=== PATIENT | female | born 1955 | race Caucasian/White ===

== ENCOUNTER 2019-08-08 09:24 | Day surgery (SDC) | payer MEDICARE, OTHER ==
[~2019-08-08] VITALS: Ht 160 cm; Wt 94.3 kg
[~2019-08-08 09:24] MED LIST: ALDA25TA2 OR; ALLOPURINAL PO; AMLO5TAB6 PO; ATOR1TAB19 PO; CIPR250T3 PO; CLON0.5T8 PO; CLONAZAPAM PO; COLA100C2 OR; COZA100T OR; FENT1DIS14 TD; FERR325T OR; FOLI1TAB11 PO; FOLITAB11 PO; GABAPOW41 PO; HYDR200T3 PO; HYOS1TAB SL; INSUH10VL SC; INSULANT SC; INSULIN 70/30 SQ; LASI20TA3 PO; LIDOCAINE 1% MDV 20ML VIAL SQ PRN; LOPE1CAP5 PO; LOPE2TAB3 PO; LOPRESSOR PO; MAGN400T PO; MAXA5TAB OR; METF-791 PO; METF10004 PO; MICA80TA PO; MILKSUS OR; MORP10SO OR; NADO20TA PO; NADO40TA PO; NEUR300C PO; NEXI1CAP4 PO; NEXIUM PO; NOVOLIN INJ; NS 1,000 ML IV ONE; ONGLYZA INJ; OXYC-517 PO; OXYCODONE PO; PERC5TAB12 PO; PRED5TA PO; REST0.05 OU; SUCR1SS PO; TOUJ300I2 SC; VITA100T51 PO; ZOCOR PO; ZYLO300T6 PO; [UNRECOGNIZED DRUG - OTHER] PO
[2019-08-08] MEDS ORDERED: PROPOFOL 200 MG/20 ML VIAL As Ordered ONE (10:15)
[2019-08-08] MEDS ORDERED: LIDOCAINE 2% INJ 100 MG/5 ML SDV (FOR ANES.) As Ordered ONE (10:15)
[2019-08-08] MEDS ORDERED: ROCURONIUM BROMIDE 50 MG/5 ML VIAL As Ordered ONE (10:15)
[2019-08-08] MEDS ORDERED: dexameTHASONE 4 MG/ML 1ML VIAL (J1100) As Ordered ONE (10:18)
[2019-08-08] MEDS ORDERED: ONDANSETRON 4MG/2ML VIAL (J2405) As Ordered ONE (10:18)
[2019-08-08 10:41] LABS: CALCIUM LEVEL 9.1 MG/DL (8.8-10.2); CREATININE FOR GFR 4.27 MG/DL (0.55-1.30); GLOMERULAR FILTRATION RATE 11.1 (>45); POTASSIUM SERUM 4.3 MEQ/L (3.5-5.1)
[2019-08-08] MEDS ORDERED: BUPIVACAINE HCL 0.5% 10 ML VIAL As Ordered ONE (10:58)
[2019-08-08] MEDS ORDERED: LIDOCAINE 2% MDV 20 ML VIAL As Ordered ONE (10:58)
[2019-08-08] MEDS ORDERED: MIDAZOLAM INJ 2 MG/2 ML VIAL (J2250) As Ordered ONE (11:06)
[2019-08-08] MEDS ORDERED: HYDROmorphone HCL 2 MG/ML 1ML VIAL (J1170) As Ordered ONE (11:07)
[2019-08-08] MEDS ORDERED: ePHEDrine SULFATE 25 MG/5 ML(5MG/ML) SYRINGE As Ordered ONE (11:50)
[2019-08-08] MEDS ORDERED: GLYCOPYRROLATE INJ 0.2 MG/ML 2 ML VIAL As Ordered ONE (11:52)
[2019-08-08] MEDS ORDERED: SUGAMMADEX SODIUM 500 MG/5 ML VIAL (BRIDION) As Ordered ONE (11:54)
[2019-08-08] MEDS ORDERED: HYDROMORPHONE HCL 0.5 MG/ 0.5 ML SYRINGE (J1170 PER 1) As Ordered ONE (12:41)
[2019-08-08] MEDS ORDERED: LR 1,000 ML IV SCH (13:00)
[2019-08-08] MEDS ORDERED: HYDROMORPHONE HCL 0.5 MG/ 0.5 ML SYRINGE (J1170 PER 1) IV PRN (13:00)
[2019-08-08] MEDS ORDERED: oxyCODONE 5MG TAB PO PRN (13:00)
[2019-08-08] MEDS ORDERED: ONDANSETRON 4MG/2ML VIAL (J2405) IV PRN (13:00)
[2019-08-08] MEDS ORDERED: oxyCODONE 5MG TAB As Ordered ONE (17:17)
[2019-08-08 17:35] VITALS: BP 110/66
--- NOTE | 2019-08-14 21:39 | ROOPDOC ---
[facility] Report Of Operation Report of Operation DATE OF SURGERY: PREOPERATIVE DIAGNOSES: . POSTOPERATIVE DIAGNOSES: . PROCEDURE: Laparoscopic peritoneal dialysis catheter placement SURGEON: Dr. Heather Miller MD CLOTH FOLDER HAND: [None] INDICATION: The procedure was described and explained to the patient in detail including drawing of pictures demonstrating the procedure and the anatomy. Risks, benefits and alternative treatment options were discussed with the patient . Benefits included but were not limited to dialysis through a catheter in the abdomen and no need for hemodialysis. Alternative treatment options included but were not limited to no intervention with continued conservative management . Risks included but were not limited to infection, bleeding, intra- abdominal organ injury necessitating exploratory laparotomy with repair, possible need for further open surgical intervention, inability to place the peritoneal dialysis catheter secondary to adhesions, failure of peritoneal dialysis catheter to function requiring revision and/or removal, failure of peritoneal dialysis catheter to provide adequate dialysis requiring revision and/or removal of catheter, allergic and/or adverse reaction to the prepping and draping materials allergic and/or adverse reaction to the anesthesia, nerve injury, scarring, bruising, pain, cerebrovascular accident, myocardial infarction, pulmonary embolus, deep venous thrombosis, poor outcome and/or results, poor patient's satisfaction, loss of limb and loss of life. Risks of not performing the procedure included but were not limited to renal replacement therapy via other forms such as hemodialysis, requirement for a tunneled central venous catheter and/or arteriovenous fistula and The patient's questions were answered . The patient voices understanding of these risks benefits and alternative treatment options. The patient signed the written consent in the preoperative holding area prior to the surgery after all of her questions were answered . ANESTHESIA: Gen. endotracheal. IVF: ESTIMATED BLOOD LOSS: mL. HEPARIN: PROTIMINE: COMPLICATIONS: . DRAINS: SPECIMENS: IMPLANTS: 62 cm curl tail peritoneal dialysis catheter inserted into the peritoneal cavity. FINDINGS: DESCRIPTION OF PROCEDURE: Patient was taken to operating room, placed supine on the operating room table and the patient was prepped and draped in a standard surgical fashion. The surgical timeout was performed by myself and all team members in the room confirming the correct patient, laterality and procedure. A stab incision was made in the left upper quadrant after anesthetizing the overl uday skin with 2 % lidocaine mixed with 0.5% Marcaine. A 5 mm port was then inserted through the stab incision into the peritoneal cavity with the laparoscope within the port using direct laparoscopic visualization to place the port within the peritoneal cavity. The abdominal cavity was insufflated with CO2. The laparoscope was inserted through the 5 mm port showing the intra-abdom inal cavity to be free of adhesions or abnormalities. [There was a large amount of adipose tissue and omentum.] The 62 cm curl tail catheter was then brought through a puncture wound in the infraumbilical region after anesthetizing the overlying skin with 2% lidocaine mixed with 0.5% Marcaine. The catheter was directed into the pelvis under laparoscopic guidance. [A second 5 mm port was placed in the right upper quadrant under direct laparoscopic visualization.] The abdomen was desufflated and 1 L of saline was instilled through the peritoneal dialysis catheter which returned easily on egress. The ports were removed and all puncture wounds were closed using 4-0 Monocryl suture in inverted interrupted fashion. Steri-Strips and dressings were applied. All in strument, sponge and needle counts were correct at the end of the case. There were no complications. Dr. Miller was present for and directed the entire case. Patient was transferred to the recovery room awake, alert, extubated and in stable condition. The results of the procedure were explained and described to the patient in the postoperative recovery area with all of questions being answered. The results of the procedure were explained and described to the patient's in the post surgical waiting area with all of questions being answered. CONCLUSION: PLAN: Elías Miller MD Aug 08, 2019 11:09
== END 2019-08-08 17:35 | disposition home or self-care (01) ==
LOC: M SDC 09:24
PROVIDERS: ATTEND Surgery Vascular Surgery
DX: N18.6 End stage renal disease (principal); I12.0 Hypertensive chronic kidney disease with stage 5 chronic kidney disease or end stage renal disease; E78.00 Pure hypercholesterolemia, unspecified; K21.9 Gastro-esophageal reflux disease without esophagitis; E10.22 Type 1 diabetes mellitus with diabetic chronic kidney disease; M10.9 Gout, unspecified; K58.9 Irritable bowel syndrome, unspecified; M06.9 Rheumatoid arthritis, unspecified; F41.9 Anxiety disorder, unspecified; M79.7 Fibromyalgia; Z88.0 Allergy status to penicillin; Z88.2 Allergy status to sulfonamides; Z88.5 Allergy status to narcotic agent; Z88.6 Allergy status to analgesic agent; Z91.018 Allergy to other foods; Z91.040 Latex allergy status; Z91.041 Radiographic dye allergy status; Z91.048 Other nonmedicinal substance allergy status; Z79.899 Other long term (current) drug therapy; Z79.4 Long term (current) use of insulin; Z90.710 Acquired absence of both cervix and uterus; Z98.51 Tubal ligation status; Z96.1 Presence of intraocular lens; Z98.41 Cataract extraction status, right eye; Z98.42 Cataract extraction status, left eye; Z68.36 Body mass index [BMI] 36.0-36.9, adult
CPT/HCPCS: 36415; 49324; 80048; J1100; J1170; J2250; J2405

== ENCOUNTER 2019-08-09 23:52 | Observation (INO) | payer MEDICARE, OTHER ==
[~2019-08-09] VITALS: Ht 152.4 cm; Wt 93.2 kg
[~2019-08-09 23:52] MED LIST changes: -LIDOCAINE 1% MDV 20ML VIAL SQ PRN; -NS 1,000 ML IV ONE
[2019-08-10 00:30] LABS: BASO % 0.1 % (0.0-1.0); EOS # 0.1 10^3/uL (0.0-0.5); EOS % 0.4 % (0.0-3.0); HEMATOCRIT 22.6 % (36.0-47.0); HEMOGLOBIN 7.3 g/dl (12.0-15.5); LYMPH # 2.6 10^3/uL (1.5-5.0); LYMPH % 14.7 % (24.0-44.0); MEAN CORPUSCULAR HEMOGLOBIN 32.6 pg (27.0-33.0); MEAN CORPUSCULAR HGB CONC 32.3 g/dl (32.0-36.5); MEAN CORPUSCULAR VOLUME 100.9 fl (80.0-96.0); MONO # 1.6 10^3/uL (0.0-0.8); MONO % 8.8 % (0.0-5.0); NEUTROPHILS # 13.3 10^3/uL (1.5-8.5); NEUTROPHILS % 75.4 % (36.0-66.0); PLATELET COUNT, AUTOMATED 287 10^3/uL (150-450); RED BLOOD COUNT 2.24 10^6/uL (4.00-5.40); WHITE BLOOD COUNT 17.7 10^3/uL (4.0-10.0)
[2019-08-10] MEDS ORDERED: HYDROMORPHONE HCL 0.5 MG/ 0.5 ML SYRINGE (J1170 PER 1) IV PRN (00:30)
[2019-08-10] MEDS ORDERED: ONDANSETRON 4MG/2ML VIAL (J2405) IV ONE (00:30)
[2019-08-10 00:41] LABS: INR 1.03; PARTIAL THROMBOPLASTIN TIME 23.3 SECONDS (25.0-38.4); PROTHROMBIN TIME 13.2 SECONDS (11.8-14.0)
--- NOTE | 2019-08-10 01:13 | REPVR ---
PROCEDURE INFORMATION: Exam: CT Abdomen and Pelvis Without Contrast Exam date and time: 08/10/2019 12:33 AM Clinical history: 64 years old, female; Abdominal pain; Generalized; Prior surgery; Surgery date: Post-operative (0-2 days); Surgery type: Attempted peritoneal catheter yesterday; Additional info: Right sided chest pain, generalized abd pain, recent ab surg TECHNIQUE: Imaging protocol: Computed tomography of the abdomen and pelvis without contrast. Radiation optimization: All CT scans at this facility use at least one of these dose optimization techniques: automated exposure control; mA and/or kV adjustment per patient size (includes targeted exams where dose is matched to clinical indication); or iterative reconstruction. COMPARISON: CT ABD PELVIS W/O CONTRAST 02/26/2015 4:29 PM FINDINGS: Lungs: Mild bibasilar fibro-atelectatic change. Liver: Nodular surface of the liver. Gallbladder and bile ducts: The gallbladder is somewhat contracted with no stones. Pancreas: Normal. No ductal dilation. Spleen: Status post splenectomy. Adrenals: Normal. No mass. Kidneys and ureters: Probable left renal cyst measuring 2.9 cm with a Hounsfield measurement of 14. Stomach and bowel: Unremarkable. No obstruction. No mucosal thickening. Appendix: Question of normal small appendix. Intraperitoneal space: Free air within the abdomen consistent with stated history of recent surgery. Vasculature: Minimal recannulization of ligamentum teres with some anterior abdominal portal venous collaterals. There is moderate atherosclerotic calcification of the abdominal aorta with extension into the iliac arteries. Lymph nodes: Unremarkable. No enlarged lymph nodes. Bladder: Unremarkable as visualized. Reproductive: Question of right ovarian cyst measuring 2.2 cm. Bones/joints: Unremarkable. No acute fracture. Soft tissues: Subcutaneous edema of the anterior abdominal wall. IMPRESSION: 1. Minimal free air consistent with stated history of recent surgery. 2. Mild bibasilar fibro-atelectatic change. 3. Subcutaneous edema of the anterior abdominal wall. 4. Status post splenectomy which is similar to 02/26/2015. 5. Suggestion of hepatic cirrhosis with some portal venous collateralization. 6. Probable left renal cyst which is new since the prior study. 7. Question of right ovarian cyst measuring 2.2 cm. COMMENT: Consistent with the [employer]'s Incidental Findings Committee Report (J Am Rickey Radiol 2010): Unless the patient's specific circumstances suggest otherwise, any liver lesion 0.5 cm or less, any cystic kidney lesion less than 1.0 cm, and/or any adrenal lesion 1.0 cm or less not otherwise characterized in this report as possessing suspicious or indeterminate imaging features is/are highly likely to be benign and do not require follow-up imaging or biopsy. Electronically signed by: Jamie Casarez On 08/10/2019 01:13:19 AM
--- NOTE | 2019-08-10 01:21 | REPVR ---
PROCEDURE INFORMATION: Exam: CT Chest Without Contrast Exam date and time: 08/10/2019 12:33 AM Clinical history: 64 years old, female; Right-sided chest pain; Prior surgery; Surgery date: Post-operative (0-2 days); Surgery type: Attempted peritoneal catheter yesterday; Additional info: Right sided chest pain, generalized abd pain, recent ab surg TECHNIQUE: Imaging protocol: Computed tomography of the chest without contrast. Radiation optimization: All CT scans at this facility use at least one of these dose optimization techniques: automated exposure control; mA and/or kV adjustment per patient size (includes targeted exams where dose is matched to clinical indication); or iterative reconstruction. COMPARISON: No relevant prior studies available. FINDINGS: Thyroid: Relatively diminutive left thyroid with inhomogeneous right thyroid. Lungs: Mild scattered fibro-atelectatic change, greatest in the bases. Pleural space: Unremarkable. No pneumothorax. No pleural effusion. Heart: Coronary artery calcifications are present. Aorta: Unremarkable. No aortic aneurysm. Lymph nodes: Unremarkable. No enlarged lymph nodes. Bones/joints: Unremarkable. No acute fracture. Soft tissues: Unremarkable. Intraperitoneal space: Free air in the abdomen. IMPRESSION: 1. Mild scattered fibro-atelectatic change, greatest in the bases. 2. Free air in the abdomen consistent with stated history of recent surgery. 3. Otherwise negative CT chest. Electronically signed by: Jamie Casarez On 08/10/2019 01:20:44 AM
[2019-08-10 01:47] LABS: ALBUMIN 2.9 GM/DL (3.2-5.2); BILIRUBIN,DIRECT 0.1 MG/DL (0.0-0.2); BILIRUBIN,TOTAL 0.4 MG/DL (0.2-1.0); CALCIUM LEVEL 8.4 MG/DL (8.8-10.2); CK-MB VALUE MASS 1.8 NG/ML (<3.6); CREATININE FOR GFR 4.96 MG/DL (0.55-1.30); GLOMERULAR FILTRATION RATE 9.3 (>45); MB/CK RELATIVE INDEX 1.71 (< OR =4); POTASSIUM SERUM 4.9 MEQ/L (3.5-5.1); TOTAL PROTEIN 6.5 GM/DL (6.4-8.2)
[2019-08-10 01:48] LABS: TROPONIN I 0.39 NG/ML (< 0.10)
[2019-08-10] MEDS ORDERED: JANU25TA PO (03:52)
[2019-08-10] MEDS ORDERED: METH1TAB40 PO (03:52)
[2019-08-10] MEDS ORDERED: CALC1CAP31 PO (03:52)
[2019-08-10] MEDS ORDERED: GABA-1171 PO (03:52)
[2019-08-10] MEDS ORDERED: ZYLO300T6 PO (03:52)
[2019-08-10] MEDS ORDERED: ACET-897 PO (03:52)
[2019-08-10] MEDS ORDERED: TERA2CAP3 PO (03:52)
[2019-08-10] MEDS ORDERED: BUME1TAB3 PO (03:52)
[2019-08-10] MEDS ORDERED: MOM 30ML SUSPENSION UDC PO PRN (04:15)
[2019-08-10] MEDS ORDERED: MAALOX 30 ML SUSP *UDC PO PRN (04:15)
[2019-08-10] MEDS ORDERED: ACETAMINOPHEN TAB 650MG DOSE (2X325MG) PO PRN (04:15)
--- NOTE | 2019-08-10 04:18 | HPEPDOC ---
General Date of Admission Date of Service: Aug 10, 2019 Chief Complaint The patient is a 64-year-old female admitted with a reason for visit of Chest Pain. Source: Patient, RN/MD Exam Limitations: No limitations Timing/Duration: Day(s) Severity: Mild History of Present Illness Ms. fortune is a 64 years old woman with ESRD who had an unsuccessful attempt of insertion of peritoneal dialysis catheter on Sunday. She noticed ecchymosis yesterday afternoon along with generalized pain syndrome (pt has hx/o fibro myalgia). Pt denies fever or chills. Pt denies abdominal distension or pain to me. In the ER, Hb was noted to be 7.3. Pt has hx/o chronic anemia and used to receive blood transfusion on a regular basis, but has not had transfusion in a few years now. Her last Hb on the record is 9 from 2015. Pt denies bleeding or melena. Vascular surgeon Dr. Miller who attempted the procedure on Sunday recommended keeping pt on observation in the hospital for anemia. CT shows edema of abdominal wall, along with many other chronic findings. PAST MEDICAL HISTORY ESRD HTN DIABETES KIDNEY DISEASE STOMACH POLYPS FIBROMYALGIA RA ANEMIA IBS ALLERGIES PENICILLAMINE SULFA (FOR ALLERGY USE ONLY) MORPHINE SULFATE PNEUMOCOCCAL VAC POLYVALENT CLONIDINE LYRICA LEVEMIR LATEX (FOR ALLERGY USE ONLY) SURGICAL HISTORY SPLENECTOMY 03/2011 FAMILY HISTORY FATHER: MOTHER: SIBLINGS: ALIVE 1 BROTHER(S) , 1 SISTER(S) - HEALTHY. Home Medications Scheduled Allopurinol (Zyloprim) 300 Mg Tablet, 300 MG PO QHS, (Reported) Atorvastatin Calcium (Atorvastatin Calcium) 10 Mg Tab, 10 MG PO QHS, (Reported) Bumetanide (Bumetanide) 1 Mg Tablet, 2 MG PO BID, (Reported) AM AND HS Calcitriol (Calcitriol) 0.25 Mcg Capsule, 0.25 MCG PO DAILY, (Reported) Esomeprazole Magnesium (Nexium 24Hr) 20 Mg Cap, 20 MG PO BID, (Reported) Folic Acid (Folic Acid) 1 Mg Tab, 1 MG PO DAILY, (Reported) Gabapentin (Neurontin) 300 Mg Cap, 300 MG PO QHS, (Reported) Gabapentin (Gabapentin) 100 Mg Capsule, 200 MG PO BID, (Reported) AM AND PM Hydroxychloroquine Sulfate (Hydroxychloroquine Sulfate) 200 Mg Tablet, 200 MG PO DAILY, (Reported) Hyoscyamine Sulfate (Hyoscyamine Sulfate) 0.125 Mg Tab, 0.125 MG SL DAILY, (Reported) Insulin Glargine,Hum.rec.anlog (Toujeo Max Solostar) 300 Unit/1 Ml Insuln.pen, 1 DOSE SC QHS, (Reported) 85 TO 90 UNITS DEPENDING ON BLOOD SUGAR Insulin Human Lispro (Novolog) 100 U/Ml Inj, 1 DOSE SC AC, (Reported) PER SLIDING SCALE Magnesium Oxide (Magnesium Oxide) 400 Mg Tablet, 400 MG PO QHS, (Reported) Methocarbamol (Methocarbamol) 500 Mg Tablet, 500 MG PO BID, (Reported) AM AND HS Nadolol (Nadolol) 20 Mg Tab, 40 MG PO DAILY, (Reported) Sitagliptin Phosphate (Januvia) 25 Mg Tablet, 25 MG PO DAILY, (Reported) Telmisartan (Micardis) 80 Mg Tablet, 80 MG PO DAILY, (Reported) Terazosin HCl (Terazosin HCl) 2 Mg Capsule, 2 MG PO QHS, (Reported) Scheduled PRN Acetaminophen (Tylenol Extra Strength) 500 Mg Tablet, 1,000 MG PO Q4H PRN for PAIN, (Reported) Clonazepam (Clonazepam) 0.5 Mg Tab, 0.5 MG PO BID PRN for ANXIETY, (Reported) AM AND HS Cyclosporine (Restasis) 0.05 % Emu, 1 DROP OU DAILY PRN for DRY EYES, (Reported) MAY USE BID PRN Loperamide HCl (Loperamide) 2 Mg Capsule, 2 MG PO DAILY PRN for IBS SYMPTOMS, (Reported) Allergies Coded Allergies: Contrast Media (Verified Allergy, Severe, ANAPHYLAXIS, HIVES, 08/10/19) Iodinated Contrast Media (Verified Allergy, Severe, ANAPHYLAXIS, 08/10/19) Penicillins (Verified Allergy, Severe, THICK TONGUE, EYE SWELLING, 08/10/19) Sulfa (Sulfonamide Antibiotics) (Verified Allergy, Severe, THICK TONGUE, EYE SWELLING, 08/10/19) influenza virus vaccine ts [id number] (36 mos,up) (Verified Allergy, Severe, guillain-ruano syndrome, 08/10/19) iodine (Verified Allergy, Severe, ANAPHYLAXIS, 08/10/19) latex (Verified Allergy, Severe, TONGUE SWELLING, ANAPHYLAXIS, 08/10/19) shellfish derived (Verified Allergy, Severe, ANAPHYLAXIS, 08/10/19) TAPE (Verified Allergy, Intermediate, red rash, 08/10/19) PLASTIC TAPE; FABRIC TAPE IS OK clonidine (Verified Allergy, Intermediate, RASH, 08/10/19) pneumococcal vaccine (Verified Allergy, Intermediate, FLU-LIKE SYMPTOMS; NAUSEA, DIARRHEA, 08/10/19) sumatriptan (Verified Allergy, Intermediate, WEIGHT GAIN, FLUID RETENTION; STATES IT DOES NOT WORK, 08/10/19) morphine (Verified Adverse Reaction, Severe, HALLUCINATIONS, PARANOIA, 08/10/19) Grapefruit (Unverified Adverse Reaction, Intermediate, INTERACTION WITH MEDS, 08/10/19) PER PT, NO ANAPHYLAXIS, PREVIOUSLY RECORDED ibuprofen (Verified Adverse Reaction, Intermediate, PER KIDNEY FUNCTION, 08/10/19) pregabalin (Verified Adverse Reaction, Intermediate, SWELLING, FLUID RETENTION, 08/10/19) verapamil (Verified Adverse Reaction, Intermediate, FLUID RETENTION; STATES IT DOES NOT WORK, 08/10/19) fentanyl (Verified Adverse Reaction, Unknown, will refuse, 08/10/19) WAS OVERDOSED ON MED POST PREVIOUS SURGERY; STATES SHE DID NOT WAKE UP FOR 3 DAYS Social History * Smoker: Denies Alcohol: Denies Drugs: denies A-FIB/CHADSVASC A-FIB History Current/History of A-Fib/PAF?: No Review of Systems Constitutional: Denies: Chills, Fever, Malaise Eyes: Denies: Pain, Vision change ENT: Denies: Head Aches, Dysphagia Skin: Reports: Bruising Pulmonary: Denies: Dyspnea, Cough Cardiovascular: Denies: Chest Pain, Edema Gastrointestinal: Denies: Nausea, Vomiting, Melena Genitourinary: Denies: Dysuria, Frequency Hematologic: Reports: Bruising Endocrine: Denies: Polydipsia, Polyphagia Musculoskeletal: Reports: Neck Pain, Back Pain, Shoulder Pain, Arm Pain, Joint Pain Neurological: Denies: Weakness, Numbness Psych: Reports: Mood Normal; Denies: Anxiety, Depression Physical Examination General Exam: Positive: Alert, Cooperative, No Acute Distress Eye Exam: Positive: PERRLA, Conjunctiva & lids normal ENT Exam: Positive: Atraumatic, Mucous membr. moist/pink Neck Exam: Positive: Supple; Negative: JVD Chest Exam: Positive: Clear to auscultation, Normal air movement Heart Exam: Positive: Rate Normal, Normal S1, Normal S2; Negative: Murmurs Abdomen Exam: Positive: Normal bowel sounds, Soft, Other (diffuse echymosis); Negative: Tenderness Extremity Exam: Positive: Normal pulses; Negative: Edema Skin Exam: Positive: Nl turgor and temperature Neuro Exam: Positive: Normal Speech, Strength at 5/5 X4 ext, Normal Tone Psych Exam: Positive: Mental status NL, Mood NL; Negative: Anxiety Vital Signs Vital Signs Date Time Temp Pulse Resp B/P (MAP) Pulse Ox O2 Delivery O2 Flow Rate FiO2 08/10/19 02:41 98.5 66 18 179/75 (109) 96 Room Air Laboratory Data Labs 24H Laboratory Tests 2 08/10/19 00:21: Immature Granulocyte % (Auto) 0.6, White Blood Count 17.7H, Red Blood Count 2.24L, Hemoglobin 7.3L, Hematocrit 22.6L, Mean Corpuscular Volume 100.9H, Mean Corpuscular Hemoglobin 32.6, Mean Corpuscular Hemoglobin Concent 32.3, Red Cell Distribution Width 14.7H, Platelet Count 287, Neutrophils (%) (Auto) 75.4H, Lymphocytes (%) (Auto) 14.7L, Monocytes (%) (Auto) 8.8H, Eosinophils (%) (Auto) 0.4, Basophils (%) (Auto) 0.1, Neutrophils # (Auto) 13.3H, Lymphocytes # (Auto) 2.6, Monocytes # (Auto) 1.6H, Eosinophils # (Auto) 0.1, Basophils # (Auto) 0.0, Nucleated Red Blood Cells % (auto) 0.5H, Prothrombin Time 13.2, Prothromb Time International Ratio 1.03, Activated Partial Thromboplast Time 23.3L 08/10/19 01:15: Anion Gap 10, Glomerular Filtration Rate 9.3L, Calcium Level 8.4L, Aspartate Amino Transf (AST/SGOT) 17, Alanine Aminotransferase (ALT/SGPT) 23, Alkaline Phosphatase 117, Total Bilirubin 0.4, Direct Bilirubin 0.1, Total Creatine Kinase 105, Creatine Kinase MB 1.8, Creatine Kinase MB Relative Index 1.71, Troponin I 0.39H, Total Protein 6.5, Albumin 2.9L, Albumin/Globulin Ratio 0.81L, Lipase 151 CBC/BMP Laboratory Tests 08/10/19 00:21 Red Blood Count 2.24 L, Mean Corpuscular Volume 100.9 H, Mean Corpuscular Hemoglobin 32.6, Mean Corpuscular Hemoglobin Concent 32.3, Red Cell Distribution Width 14.7 H, Neutrophils (%) (Auto) 75.4 H, Lymphocytes (%) (Auto) 14.7 L, Monocytes (%) (Auto) 8.8 H, Eosinophils (%) (Auto) 0.4, Basophils (%) (Auto) 0.1, Neutrophils # (Auto) 13.3 H, Lymphocytes # (Auto) 2.6, Monocytes # (Auto) 1.6 H, Eosinophils # (Auto) 0.1, Basophils # (Auto) 0.0 08/10/19 01:15 Assessment/Plan Anemia of CKD - Keep on observation - Transfuse one unit RBC - Monitor H/H Abdominal wall ecchymosis from surgical procedure - Monitor clinically - There are no signs of hematoma Continue home meds for other chronic conditions. Plan / VTE VTE Prophylaxis Ordered?: No VTE Exclusion Mechanical Proph: Low Risk for VTE VTE Exclusion Pharmacological: At Low Risk for VTE Plan Diet: Continue Current Activity: Continue Current Diagnostics: Repeat Labs in AM Anticipated Discharge: Home MARCELLA SMITH MD Aug 10, 2019 04:18
[2019-08-10] MEDS ORDERED: GLUCOSE 4 GM CHEW TABLET PO PRN (04:30)
[2019-08-10] MEDS ORDERED: GLUCAGON FOR INJ 1 MG VIAL (J1610) SC PRN (04:30)
[2019-08-10] MEDS ORDERED: DEXTROSE 50% 50 ML SYRINGE IV PRN (04:30)
[2019-08-10] MEDS ORDERED: clonazePAM 0.5 MG TAB PO PRN (04:30)
[2019-08-10] MEDS ORDERED: PILL CUTTER 1 EACH XX PRN (05:00)
[2019-08-10] MEDS: GABAPENTIN 100 MG CAP PO SCH ×2 (08:53→16:02)
[2019-08-10 08:54] VITALS: BP 187/77
[2019-08-10] MEDS: HumaLOG INSULIN (NovoLOG) PER UNIT SC SCH ×2 (08:55→12:00)
[2019-08-10] MEDS ORDERED: PANTOPRAZOLE 40MG TAB (PROTONIX) PO SCH (09:00)
[2019-08-10] MEDS ORDERED: HYOSCYAMINE SULFATE 0.125 MG SUBL TABLET SL SCH (09:00)
[2019-08-10] MEDS ORDERED: FOLIC ACID 1 MG TAB PO SCH (09:00)
[2019-08-10] MEDS ORDERED: CALCITRIOL 0.25 MCG CAP (S0169) PO SCH (09:00)
[2019-08-10] MEDS ORDERED: METHOCARBAMOL 500 MG TAB PO SCH (09:00)
[2019-08-10] MEDS ORDERED: NADOLOL 20MG TABLET PO SCH (09:00)
[2019-08-10] MEDS ORDERED: TELMISARTAN 20 MG TAB PO SCH (09:00)
[2019-08-10] MEDS ORDERED: SITagliptin 50 MG TAB (JANUVIA) PO SCH (09:00)
[2019-08-10] MEDS ORDERED: HYDROXYCHLOROQUINE 200 MG TAB PO SCH (09:00)
[2019-08-10 10:00] LABS: HEMATOCRIT 23.5 % (36.0-47.0); HEMOGLOBIN 7.7 g/dl (12.0-15.5); MEAN CORPUSCULAR HEMOGLOBIN 32.8 pg (27.0-33.0); MEAN CORPUSCULAR HGB CONC 32.8 g/dl (32.0-36.5); PLATELET COUNT, AUTOMATED 264 10^3/uL (150-450); RED BLOOD COUNT 2.35 10^6/uL (4.00-5.40)
[2019-08-10 10:29] LABS: ALBUMIN 2.9 GM/DL (3.2-5.2); BILIRUBIN,TOTAL 0.5 MG/DL (0.2-1.0); CALCIUM LEVEL 8.3 MG/DL (8.8-10.2); CREATININE FOR GFR 4.5 MG/DL (0.55-1.30); GLOMERULAR FILTRATION RATE 10.4 (>45); POTASSIUM SERUM 4.7 MEQ/L (3.5-5.1); TOTAL PROTEIN 6.4 GM/DL (6.4-8.2); TROPONIN I 0.24 NG/ML (< 0.10)
--- NOTE | 2019-08-10 11:13 | CR.PDOC ---
General Date of Consultation: Aug 10, 2019 Consultation REASON FOR CONSULTATION/CHIEF COMPLAINT: Right shoulder pain and postop bruising abdomen HISTORY OF PRESENT ILLNESS: Ms Billings is a very pleasant 64yo patient who POD #2 s/p aborted lap PD catheter placement. She had a significant amount of right shoulder pain postop, and thought it might be dislocated. She says she called several times about pain medication but was told to take tylenol. Along with this, she noticed worsening bruising on her left mid abdomen around one of her 3 port sites. She came to the ED in the middle of the night to be evaluated, and was admitted to the hospitalist service for Hgb 7.3 (now s/p 1 unit PRBC and repeat Hgb 7.7) and overnight monitoring. CT noncontrast abd pelvis shows bruising in the soft tissue around the left paramedian port site, and is appears to be due to bleeding from the left inferior epigastric artery or one of its branches. This should be self limiting. I discussed with her that I would like an abdominal binder to give her a little support until the bruising resolves and she is agreeable. She may need one more unit of PRBC before d/c home, and we will leave this decision to the hospitalist team. Regarding her shoulder, she s ays she tried alternating heat and ice at home, and this helped a little, but she was given IV pain medicine overnight and it helped a lot. She says her ROM is better today and the pain is improving. She would like a few days of pain medication at discharge and I think that is reasonable. Regarding her need for dialysis access, the patient is not interested in permcath or new AV access. She had a anirudh AVF LUE placed in [place] and had a lot of trouble afterwards due to h/o carpal tunnel syndrome and paresthesias, and the fistula was ?ligated. She does not want new access. She was hoping the PD catheter would allow her to do dialysis at home, but since Dr Miller was not able to place the catheter, she does not want to discuss new access for HD. I told her we would be more than happy to help her at any time if she changes her mind. ALLERGIES: Please see below. HOME MEDICATIONS: Please see below. PAST MEDICAL HISTORY: 1. Lupus. 2. Stage V renal disease 3. Diabetes 4. Fibromyalgia 5. Anxiety and depression 6. GERD 7. HTN 8. HLD PAST SURGICAL HISTORY: 1. LUE AVF radiocephalic creation and ligation 2. Aborted attempt lap PD catheter placement 3. Splenectomy FAMILY HISTORY: HTN, heart disease, DM SOCIAL HISTORY: Lives with , denies tob, etoh, illicit drug use REVIEW OF SYSTEMS: CONSTITUTIONAL: +fatigue no f/c HEENT: +dry eyes CARDIOVASCULAR: no CP RESPIRATORY: no SOB or cough GENITOURINARY: no dysuria MUSCULOSKELETAL: +right shoulder pain, +fibromyalgia GASTROINTESTINAL: no n/v/d +constipation SKIN: no rashes NEUROLOGICAL: no focal deficits, no TINAJERO PSYCHIATRIC: +depression and anxiety ENDOCRINE: +dm HEMATOLOGIC/LYMPHATIC: +anemia ALLERGIC/IMMUNOLOGIC: denies PHYSICAL EXAMINATION: VITAL SIGNS: Please see below. GENERAL APPEARANCE: Medically stable, NAD HEENT: vision intact, TMI RESPIRATORY: CTA CARDIOVASCULAR: RRR ABDOMEN: soft, min TTP over mid left abd 2/2 large area of bruising, all 3 port sites with dressings c/d/i. No focal hematoma palpable. +BS. EXTREMITIES: R should ROM intact both active and passive. Distal pulses intact. NEUROLOGICAL: A&Ox3, MAEE PSYCHIATRIC: pleasant and cooperative LABORATORY DATA: Please see below. ASSESSMENT/PLAN: 1. Abdominal binder for support 2. Decision for further transfusion per hospitalist team 3. Follow up as scheduled next week with Dr Miller 4. Analgesia 3-4 days at discharge 5. Ok to d/c from vascular standpoint when clinically stable We appreciate the opportunity to participate in the care of this patient. Vital Signs/I&O Vital Signs Date Time Temp Pulse Resp B/P (MAP) Pulse Ox O2 Delivery O2 Flow Rate FiO2 08/10/19 08:54 80 187/77 08/10/19 06:17 97.0 18 95 Room Air Laboratory Data Labs 24H Laboratory Tests 2 08/10/19 00:21: Immature Granulocyte % (Auto) 0.6, White Blood Count 17.7H, Red Blood Count 2.24L, Hemoglobin 7.3L, Hematocrit 22.6L, Mean Corpuscular Volume 100.9H, Mean Corpuscular Hemoglobin 32.6, Mean Corpuscular Hemoglobin Concent 32.3, Red Cell Distribution Width 14.7H, Platelet Count 287, Neutrophils (%) (Auto) 75.4H, Lymphocytes (%) (Auto) 14.7L, Monocytes (%) (Auto) 8.8H, Eosinophils (%) (Auto) 0.4, Basophils (%) (Auto) 0.1, Neutrophils # (Auto) 13.3H, Lymphocytes # (Auto) 2.6, Monocytes # (Auto) 1.6H, Eosinophils # (Auto) 0.1, Basophils # (Auto) 0.0, Nucleated Red Blood Cells % (auto) 0.5H, Prothrombin Time 13.2, Prothromb Time International Ratio 1.03, Activated Partial Thromboplast Time 23.3L 08/10/19 01:15: Anion Gap 10, Glomerular Filtration Rate 9.3L, Calcium Level 8.4L, Aspartate Amino Transf (AST/SGOT) 17, Alanine Aminotransferase (ALT/SGPT) 23, Alkaline Phosphatase 117, Total Bilirubin 0.4, Direct Bilirubin 0.1, Total Creatine Kinase 105, Creatine Kinase MB 1.8, Creatine Kinase MB Relative Index 1.71, Troponin I 0.39H, Total Protein 6.5, Albumin 2.9L, Albumin/Globulin Ratio 0.81L, Lipase 151 08/10/19 08:36: Bedside Glucose (Misc Panel) 151H 08/10/19 09:47: Nucleated Red Blood Cells % (auto) 0.7H, Anion Gap 10, Glomerular Filtration Rate 10.4L, Calcium Level 8.3L, Aspartate Amino Transf (AST/SGOT) 15, Alanine Aminotransferase (ALT/SGPT) 22, Alkaline Phosphatase 105, Total Bilirubin 0.5, Troponin I 0.24#H, Total Protein 6.4, Albumin 2.9L, Albumin/Globulin Ratio 0.83L, Blood Urea Nitrogen 79H, Creatinine 4.50H, Sodium Level 135L, Potassium Level 4.7, Chloride Level 101, Carbon Dioxide Level 24 CBC/BMP Laboratory Tests 08/10/19 00:21 Red Blood Count 2.24 L, Mean Corpuscular Volume 100.9 H, Mean Corpuscular Hemoglobin 32.6, Mean Corpuscular Hemoglobin Concent 32.3, Red Cell Distribution Width 14.7 H, Neutrophils (%) (Auto) 75.4 H, Lymphocytes (%) (Auto) 14.7 L, Monocytes (%) (Auto) 8.8 H, Eosinophils (%) (Auto) 0.4, Basophils (%) (Auto) 0.1, Neutrophils # (Auto) 13.3 H, Lymphocytes # (Auto) 2.6, Monocytes # (Auto) 1.6 H, Eosinophils # (Auto) 0.1, Basophils # (Auto) 0.0 08/10/19 01:15 08/10/19 09:47 Red Blood Count 2.35 L, Mean Corpuscular Volume 100.0 H, Mean Corpuscular Hemoglobin 32.8, Mean Corpuscular Hemoglobin Concent 32.8, Red Cell Distribution Width 14.9 H, Calcium Level 8.3 L, Aspartate Amino Transf (AST/SGOT) 15, Alanine Aminotransferase (ALT/SGPT) 22, Alkaline Phosphatase 105, Total Bilirubin 0.5, Total Protein 6.4, Albumin 2.9 L Allergies Coded Allergies: Contrast Media (Verified Allergy, Severe, ANAPHYLAXIS, HIVES, 08/10/19) Iodinated Contrast Media (Verified Allergy, Severe, ANAPHYLAXIS, 08/10/19) Penicillins (Verified Allergy, Severe, THICK TONGUE, EYE SWELLING, 08/10/19) Sulfa (Sulfonamide Antibiotics) (Verified Allergy, Severe, THICK TONGUE, EYE SWELLING, 08/10/19) influenza virus vaccine ts [id number] (36 mos,up) (Verified Allergy, Severe, guillain-ruano syndrome, 08/10/19) iodine (Verified Allergy, Severe, ANAPHYLAXIS, 08/10/19) latex (Verified Allergy, Severe, TONGUE SWELLING, ANAPHYLAXIS, 08/10/19) shellfish derived (Verified Allergy, Severe, ANAPHYLAXIS, 08/10/19) TAPE (Verified Allergy, Intermediate, red rash, 08/10/19) PLASTIC TAPE; FABRIC TAPE IS OK clonidine (Verified Allergy, Intermediate, RASH, 08/10/19) pneumococcal vaccine (Verified Allergy, Intermediate, FLU-LIKE SYMPTOMS; NAUSEA, DIARRHEA, 08/10/19) sumatriptan (Verified Allergy, Intermediate, WEIGHT GAIN, FLUID RETENTION; STATES IT DOES NOT WORK, 08/10/19) morphine (Verified Adverse Reaction, Severe, HALLUCINATIONS, PARANOIA, 08/10/19) Grapefruit (Unverified Adverse Reaction, Intermediate, INTERACTION WITH MEDS, 08/10/19) PER PT, NO ANAPHYLAXIS, PREVIOUSLY RECORDED ibuprofen (Verified Adverse Reaction, Intermediate, PER KIDNEY FUNCTION, 08/10/19) pregabalin (Verified Adverse Reaction, Intermediate, SWELLING, FLUID RETENTION, 08/10/19) verapamil (Verified Adverse Reaction, Intermediate, FLUID RETENTION; STATES IT DOES NOT WORK, 08/10/19) fentanyl (Verified Adverse Reaction, Unknown, will refuse, 08/10/19) WAS OVERDOSED ON MED POST PREVIOUS SURGERY; STATES SHE DID NOT WAKE UP FOR 3 DAYS Home Medications Scheduled Allopurinol (Zyloprim) 300 Mg Tablet, 300 MG PO QHS, (Reported) Atorvastatin Calcium (Atorvastatin Calcium) 10 Mg Tab, 10 MG PO QHS, (Reported) Bumetanide (Bumetanide) 1 Mg Tablet, 2 MG PO BID, (Reported) AM AND HS Calcitriol (Calcitriol) 0.25 Mcg Capsule, 0.25 MCG PO DAILY, (Reported) Esomeprazole Magnesium (Nexium 24Hr) 20 Mg Cap, 20 MG PO BID, (Reported) Folic Acid (Folic Acid) 1 Mg Tab, 1 MG PO DAILY, (Reported) Gabapentin (Neurontin) 300 Mg Cap, 300 MG PO QHS, (Reported) Gabapentin (Gabapentin) 100 Mg Capsule, 200 MG PO BID, (Reported) AM AND PM Hydroxychloroquine Sulfate (Hydroxychloroquine Sulfate) 200 Mg Tablet, 200 MG PO DAILY, (Reported) Hyoscyamine Sulfate (Hyoscyamine Sulfate) 0.125 Mg Tab, 0.125 MG SL DAILY, (Reported) Insulin Glargine,Hum.rec.anlog (Toujeo Max Solostar) 300 Unit/1 Ml Insuln.pen, 1 DOSE SC QHS, (Reported) 85 TO 90 UNITS DEPENDING ON BLOOD SUGAR Insulin Human Lispro (Novolog) 100 U/Ml Inj, 1 DOSE SC AC, (Reported) PER SLIDING SCALE Magnesium Oxide (Magnesium Oxide) 400 Mg Tablet, 400 MG PO QHS, (Reported) Methocarbamol (Methocarbamol) 500 Mg Tablet, 500 MG PO BID, (Reported) AM AND HS Nadolol (Nadolol) 20 Mg Tab, 40 MG PO DAILY, (Reported) Sitagliptin Phosphate (Januvia) 25 Mg Tablet, 25 MG PO DAILY, (Reported) Telmisartan (Micardis) 80 Mg Tablet, 80 MG PO DAILY, (Reported) Terazosin HCl (Terazosin HCl) 2 Mg Capsule, 2 MG PO QHS, (Reported) Scheduled PRN Acetaminophen (Tylenol Extra Strength) 500 Mg Tablet, 1,000 MG PO Q4H PRN for PAIN, (Reported) Clonazepam (Clonazepam) 0.5 Mg Tab, 0.5 MG PO BID PRN for ANXIETY, (Reported) AM AND HS Cyclosporine (Restasis) 0.05 % Emu, 1 DROP OU DAILY PRN for DRY EYES, (Reported) MAY USE BID PRN Loperamide HCl (Loperamide) 2 Mg Capsule, 2 MG PO DAILY PRN for IBS SYMPTOMS, (Reported) ABBEY BILL MD Aug 10, 2019 11:13
[2019-08-10] MEDS ORDERED: PERCOCET 5MG/325MG TAB PO PRN (11:15)
--- NOTE | 2019-08-10 13:30 | ECGEPIP ---
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
[2019-08-10] MEDS ORDERED: PERCOCET PO (14:33)
--- NOTE | 2019-08-10 14:56 | DS.PDOC ---
Discharge Summary General Date of Admission Aug 09, 2019 at 23:53 Date of Discharge 08/10/19 Discharge Summary PROCEDURES PERFORMED DURING STAY: [None]. ADMITTING DIAGNOSES: 1. Anemia 2. R. shoulder pain 3. ESRD 4. Recent unsuccessful placement of peritoneal dialysis catheter 5. Abdominal wall ecchymosis DISCHARGE DIAGNOSES: 1. Anemia 2. R. shoulder pain 3. ESRD 4. Recent unsuccessful placement of peritoneal dialysis catheter 5. Abdominal wall ecchymosis COMPLICATIONS/CHIEF COMPLAINT: Anemia. HISTORY OF PRESENT ILLNESS: "Ms. fortune is a 64 years old woman with ESRD who had an unsuccessful attempt of insertion of peritoneal dialysis catheter on Sunday. She noticed ecchymosis yesterday afternoon along with generalized pain syndrome (pt has hx/o fibromyalgia). Pt denies fever or chills. Pt denies abdominal distension or pain to me. In the ER, Hb was noted to be 7.3. Pt has hx/o chronic anemia and used to receive blood transfusion on a regular basis, but has not had transfusion in a few years now. Her last Hb on the record is 9 from 2015. Pt denies bleeding or melena. Vascular surgeon Dr. Miller who attempted the procedure on Sunday recommended keeping pt on observation in the hospital for anemia. CT shows edema of abdominal wall, along with many other chronic findings." HOSPITAL COURSE: Patient received 2 units of pRBC and reported feeling well. She stated that she primarily came because of the R. shoulder discomfort. Given her history of fibromyalgia, SLE, etc. She is very sensitive to any type of pain. She only have Tylenol at home that is why she reported she came in. She states that she feels much better now and would like to go home as long as she have some pain medications, does not like Tramadol or morphine. Patient also seen by vascular surgery team as well as nephrology. Patient does not want placement of permacath at this time. Discharge patient post 2 unit pRBC to follow up with PMD, Vascular and nephrology. She does have abdominal hematoma, recommended keeping an abdominal binder on. DISCHARGE MEDICATIONS: Please see below. ALLERGIES: Please see below. PHYSICAL EXAMINATION ON DISCHARGE: VITAL SIGNS: Please see below. General: No acute distress, Alert Eyes: Normal sclera, EOMI, MIKAELA HENT: Atraumatic, neck supple Cardiovascular: Normal rate, normal rhythm. Pulmonary: Clear to auscultation b/l, no wheezing GI: Soft, nontender Skin: Warm and dry. Abdominal superficial hematoma over periumbilical and L. sided abdomen Neuro: CN grossly intact. No focal deficits. Psych: oriented x 3 LABORATORY DATA: Please see below. IMAGING: CT abdomen- IMPRESSION: 1. Minimal free air consistent with stated history of recent surgery. 2. Mild bibasilar fibro-atelectatic change. 3. Subcutaneous edema of the anterior abdominal wall. 4. Status post splenectomy which is similar to 02/26/2015. 5. Suggestion of hepatic cirrhosis with some portal venous collateralization. 6. Probable left renal cyst which is new since the prior study. 7. Question of right ovarian cyst measuring 2.[address]- IMPRESSION: 1. Mild scattered fibro-atelectatic change, greatest in the bases. 2. Free air in the abdomen consistent with stated history of recent surgery. 3. Otherwise negative CT chest. ACTIVITY: [As tolerated]. DIET: 2G sodium diet DISCHARGE PLAN: F/u PMD, nephrology and vascular surgery. maintain abdominal binder Continue H/H monitoring with primary/nephro DISPOSITION: Home. DISCHARGE INSTRUCTIONS: F/u PMD, nephrology and vascular surgery. maintain abdominal binder Continue H/H monitoring with primary/nephro ITEMS TO FOLLOWUP ON ON OUTPATIENT: None DISCHARGE CONDITION: [Stable]. TIME SPENT ON DISCHARGE: 35 minutes. Vital Signs/I&Os Vital Signs Date Time Temp Pulse Resp B/P (MAP) Pulse Ox O2 Delivery O2 Flow Rate FiO2 08/10/19 08:54 80 187/77 08/10/19 06:17 97.0 18 95 Room Air Laboratory Data Labs 24H Laboratory Tests 2 08/10/19 00:21: Immature Granulocyte % (Auto) 0.6, White Blood Count 17.7H, Red Blood Count 2.24L, Hemoglobin 7.3L, Hematocrit 22.6L, Mean Corpuscular Volume 100.9H, Mean Corpuscular Hemoglobin 32.6, Mean Corpuscular Hemoglobin Concent 32.3, Red Cell Distribution Width 14.7H, Platelet Count 287, Neutrophils (%) (Auto) 75.4H, Lymphocytes (%) (Auto) 14.7L, Monocytes (%) (Auto) 8.8H, Eosinophils (%) (Auto) 0.4, Basophils (%) (Auto) 0.1, Neutrophils # (Auto) 13.3H, Lymphocytes # (Auto) 2.6, Monocytes # (Auto) 1.6H, Eosinophils # (Auto) 0.1, Basophils # (Auto) 0.0, Nucleated Red Blood Cells % (auto) 0.5H, Prothrombin Time 13.2, Prothromb Time International Ratio 1.03, Activated Partial Thromboplast Time 23.3L 08/10/19 01:15: Anion Gap 10, Glomerular Filtration Rate 9.3L, Calcium Level 8.4L, Aspartate Amino Transf (AST/SGOT) 17, Alanine Aminotransferase (ALT/SGPT) 23, Alkaline Phosphatase 117, Total Bilirubin 0.4, Direct Bilirubin 0.1, Total Creatine Kinase 105, Creatine Kinase MB 1.8, Creatine Kinase MB Relative Index 1.71, Troponin I 0.39H, Total Protein 6.5, Albumin 2.9L, Albumin/Globulin Ratio 0.81L, Lipase 151 08/10/19 08:36: Bedside Glucose (Misc Panel) 151H 08/10/19 09:47: Nucleated Red Blood Cells % (auto) 0.7H, Anion Gap 10, Glomerular Filtration Rate 10.4L, Calcium Level 8.3L, Aspartate Amino Transf (AST/SGOT) 15, Alanine Aminotransferase (ALT/SGPT) 22, Alkaline Phosphatase 105, Total Bilirubin 0.5, Troponin I 0.24#H, Total Protein 6.4, Albumin 2.9L, Albumin/Globulin Ratio 0.83L, Blood Urea Nitrogen 79H, Creatinine 4.50H, Sodium Level 135L, Potassium Level 4.7, Chloride Level 101, Carbon Dioxide Level 24 08/10/19 11:45: Bedside Glucose (Misc Panel) 270H CBC/BMP Laboratory Tests 08/10/19 00:21 Red Blood Count 2.24 L, Mean Corpuscular Volume 100.9 H, Mean Corpuscular Hemoglobin 32.6, Mean Corpuscular Hemoglobin Concent 32.3, Red Cell Distribution Width 14.7 H, Neutrophils (%) (Auto) 75.4 H, Lymphocytes (%) (Auto) 14.7 L, Monocytes (%) (Auto) 8.8 H, Eosinophils (%) (Auto) 0.4, Basophils (%) (Auto) 0.1, Neutrophils # (Auto) 13.3 H, Lymphocytes # (Auto) 2.6, Monocytes # (Auto) 1.6 H, Eosinophils # (Auto) 0.1, Basophils # (Auto) 0.0 08/10/19 01:15 08/10/19 09:47 Red Blood Count 2.35 L, Mean Corpuscular Volume 100.0 H, Mean Corpuscular Hemoglobin 32.8, Mean Corpuscular Hemoglobin Concent 32.8, Red Cell Distribution Width 14.9 H, Calcium Level 8.3 L, Aspartate Amino Transf (AST/SGOT) 15, Alanine Aminotransferase (ALT/SGPT) 22, Alkaline Phosphatase 105, Total Bilirubin 0.5, Total Protein 6.4, Albumin 2.9 L FSBS Laboratory Tests Test 08/10/19 08:36 08/10/19 11:45 Range/Units Bedside Glucose (Misc Panel) 151 270 80-115 MG/DL Discharge Medications Scheduled Allopurinol (Zyloprim) 300 Mg Tablet, 300 MG PO QHS, (Reported) Atorvastatin Calcium (Atorvastatin Calcium) 10 Mg Tab, 10 MG PO QHS, (Reported) Bumetanide (Bumetanide) 1 Mg Tablet, 2 MG PO BID, (Reported) AM AND HS Calcitriol (Calcitriol) 0.25 Mcg Capsule, 0.25 MCG PO DAILY, (Reported) Esomeprazole Magnesium (Nexium 24Hr) 20 Mg Cap, 20 MG PO BID, (Reported) Folic Acid (Folic Acid) 1 Mg Tab, 1 MG PO DAILY, (Reported) Gabapentin (Neurontin) 300 Mg Cap, 300 MG PO QHS, (Reported) Gabapentin (Gabapentin) 100 Mg Capsule, 200 MG PO BID, (Reported) AM AND PM Hydroxychloroquine Sulfate (Hydroxychloroquine Sulfate) 200 Mg Tablet, 200 MG PO DAILY, (Reported) Hyoscyamine Sulfate (Hyoscyamine Sulfate) 0.125 Mg Tab, 0.125 MG SL DAILY, (Reported) Insulin Glargine,Hum.rec.anlog (Toujeo Max Solostar) 300 Unit/1 Ml Insuln.pen, 1 DOSE SC QHS, (Reported) 85 TO 90 UNITS DEPENDING ON BLOOD SUGAR Insulin Human Lispro (Novolog) 100 U/Ml Inj, 1 DOSE SC AC, (Reported) PER SLIDING SCALE Magnesium Oxide (Magnesium Oxide) 400 Mg Tablet, 400 MG PO QHS, (Reported) Methocarbamol (Methocarbamol) 500 Mg Tablet, 500 MG PO BID, (Reported) AM AND HS Nadolol (Nadolol) 20 Mg Tab, 40 MG PO DAILY, (Reported) Sitagliptin Phosphate (Januvia) 25 Mg Tablet, 25 MG PO DAILY, (Reported) Telmisartan (Micardis) 80 Mg Tablet, 80 MG PO DAILY, (Reported) Terazosin HCl (Terazosin HCl) 2 Mg Capsule, 2 MG PO QHS, (Reported) Scheduled PRN Acetaminophen (Tylenol Extra Strength) 500 Mg Tablet, 1,000 MG PO Q4H PRN for PAIN, (Reported) Clonazepam (Clonazepam) 0.5 Mg Tab, 0.5 MG PO BID PRN for ANXIETY, (Reported) AM AND HS Cyclosporine (Restasis) 0.05 % Emu, 1 DROP OU DAILY PRN for DRY EYES, (Reported) MAY USE BID PRN Loperamide HCl (Loperamide) 2 Mg Capsule, 2 MG PO DAILY PRN for IBS SYMPTOMS, (Reported) Oxycodone/Acetaminophen (Oxycodone-Acetaminophen 5-325) 1 Each Tablet, 1 TAB PO Q6HP PRN for SEVERE PAIN (PS 8-10) Allergies Coded Allergies: Contrast Media (Verified Allergy, Severe, ANAPHYLAXIS, HIVES, 08/10/19) Iodinated Contrast Media (Verified Allergy, Severe, ANAPHYLAXIS, 08/10/19) Penicillins (Verified Allergy, Severe, THICK TONGUE, EYE SWELLING, 08/10/19) Sulfa (Sulfonamide Antibiotics) (Verified Allergy, Severe, THICK TONGUE, EYE SWELLING, 08/10/19) influenza virus vaccine ts 1351-6762 (36 mos,up) (Verified Allergy, Severe, guillain-ruano syndrome, 08/10/19) iodine (Verified Allergy, Severe, ANAPHYLAXIS, 08/10/19) latex (Verified Allergy, Severe, TONGUE SWELLING, ANAPHYLAXIS, 08/10/19) shellfish derived (Verified Allergy, Severe, ANAPHYLAXIS, 08/10/19) TAPE (Verified Allergy, Intermediate, red rash, 08/10/19) PLASTIC TAPE; FABRIC TAPE IS OK clonidine (Verified Allergy, Intermediate, RASH, 08/10/19) pneumococcal vaccine (Verified Allergy, Intermediate, FLU-LIKE SYMPTOMS; NAUSEA, DIARRHEA, 08/10/19) sumatriptan (Verified Allergy, Intermediate, WEIGHT GAIN, FLUID RETENTION; STATES IT DOES NOT WORK, 08/10/19) morphine (Verified Adverse Reaction, Severe, HALLUCINATIONS, PARANOIA, 08/10/19) Grapefruit (Unverified Adverse Reaction, Intermediate, INTERACTION WITH MEDS, 08/10/19) PER PT, NO ANAPHYLAXIS, PREVIOUSLY RECORDED ibuprofen (Verified Adverse Reaction, Intermediate, PER KIDNEY FUNCTION, 08/10/19) pregabalin (Verified Adverse Reaction, Intermediate, SWELLING, FLUID RETENTION, 08/10/19) verapamil (Verified Adverse Reaction, Intermediate, FLUID RETENTION; STATES IT DOES NOT WORK, 08/10/19) fentanyl (Verified Adverse Reaction, Unknown, will refuse, 08/10/19) WAS OVERDOSED ON MED POST PREVIOUS SURGERY; STATES SHE DID NOT WAKE UP FOR 3 DAYS EDMOND LANG MD Aug 10, 2019 14:56
[2019-08-10 16:39] VITALS: BP 189/80
[2019-08-10] MEDS ORDERED: GABAPENTIN 300 MG CAP PO SCH (21:00)
[2019-08-10] MEDS ORDERED: MAGNESIUM OXIDE 400 MG TAB (MAG-OX) PO SCH (21:00)
[2019-08-10] MEDS ORDERED: ALLOPURINOL 300 MG TAB PO SCH (21:00)
[2019-08-10] MEDS ORDERED: ATORVASTATIN 10 MG TAB PO SCH (21:00)
[2019-08-10] MEDS ORDERED: TERAZOSIN 1 MG CAP PO SCH (21:00)
[2019-08-10] MEDS ORDERED: HumaLOG INSULIN (NovoLOG) PER UNIT SC SCH (21:00)
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
== END 2019-08-10 16:43 | disposition home or self-care (01) ==
LOC: M ED 23:52 → M ED INP 23:53
PROVIDERS: ADMIT Internal Medicine; ATTEND Internal Medicine
DX: D64.9 Anemia, unspecified (principal); M25.511 Pain in right shoulder; L76.32 Postprocedural hematoma of skin and subcutaneous tissue following other procedure; N18.6 End stage renal disease; I12.0 Hypertensive chronic kidney disease with stage 5 chronic kidney disease or end stage renal disease; M79.7 Fibromyalgia; M32.10 Systemic lupus erythematosus, organ or system involvement unspecified; E11.9 Type 2 diabetes mellitus without complications; Z79.4 Long term (current) use of insulin; Z79.899 Other long term (current) drug therapy; K58.8 Other irritable bowel syndrome; Z88.2 Allergy status to sulfonamides; Z88.0 Allergy status to penicillin; Z91.013 Allergy to seafood; Z91.041 Radiographic dye allergy status; Z88.8 Allergy status to other drugs, medicaments and biological substances; F41.9 Anxiety disorder, unspecified; F32.9 Major depressive disorder, single episode, unspecified
CPT/HCPCS: 36415; 36430; 71250; 74176; 80053; 82550; 82553; 83690; 84484; 85025; 85027; 85610; 85730; 86850; 86900; 86901; 86920; 93005; 93041; 94760; 96374; 96375; 99285; G0378; J1170; J2405; P9016

== ENCOUNTER → 2020-01-27 | Outpatient (REF) | payer MEDICARE, OTHER ==
[~2020-01-27] MED LIST changes: +ACET-897 PO; +BUME1TAB3 PO; +CALC1CAP31 PO; +CLON0.5T2 PO; -CLON0.5T8 PO; +GABA-1171 PO; +JANU25TA PO; -MAGN400T PO; +MAGN400T3 PO; +METH1TAB40 PO; +PERCOCET PO; +TERA2CAP3 PO
[2020-01-27 18:06] LABS: BASO # 0.1 10^3/uL (0.0-0.2); BASO % 0.5 % (0.0-1.0); EOS # 0.3 10^3/uL (0.0-0.5); EOS % 2.6 % (0.0-3.0); HEMATOCRIT 30.4 % (36.0-47.0); HEMOGLOBIN 9.9 g/dl (12.0-15.5); LYMPH # 2.6 10^3/uL (1.5-5.0); LYMPH % 26.6 % (24.0-44.0); MEAN CORPUSCULAR HGB CONC 32.6 g/dl (32.0-36.5); MEAN CORPUSCULAR VOLUME 107.4 fl (80.0-96.0); MONO # 0.9 10^3/uL (0.0-0.8); MONO % 9.4 % (0.0-5.0); NEUTROPHILS # 5.8 10^3/uL (1.5-8.5); NEUTROPHILS % 60.4 % (36.0-66.0); PLATELET COUNT, AUTOMATED 256 10^3/uL (150-450); RED BLOOD COUNT 2.83 10^6/uL (4.00-5.40); WHITE BLOOD COUNT 9.6 10^3/uL (4.0-10.0)
[2020-01-27 18:26] LABS: ALBUMIN 3.3 GM/DL (3.2-5.2); BILIRUBIN,TOTAL 0.3 MG/DL (0.2-1.0); CALCIUM LEVEL 9.4 MG/DL (8.8-10.2); CREATININE FOR GFR 3.27 MG/DL (0.55-1.30); POTASSIUM SERUM 4.7 MEQ/L (3.5-5.1); RHEUMATOID FACTOR QUANT 22.9 IU/ML (<15.0); TOTAL PROTEIN 7.4 GM/DL (6.4-8.2)
[2020-01-27 18:41] LABS: C REACTIVE PROTEIN QUANTITATIV 0.55 MG/DL (0.00-0.30)
[2020-01-27 19:07] LABS: ERYTHROCYTE SEDIMENTATION RATE 62 mm/hr (0-30)
== END ==
LOC: M SFHCRHEU 13:35
PROVIDERS: ATTEND Internal Medicine
DX: M05.79 Rheumatoid arthritis with rheumatoid factor of multiple sites without organ or systems involvement (principal); R68.2 Dry mouth, unspecified

== ENCOUNTER → 2020-12-15 | Outpatient (REF) | payer MEDICARE, OTHER ==
[~2020-12-15] MED LIST changes: +AMLO1TAB24 PO; -AMLO5TAB6 PO; -METF-791 PO; +METF-838 PO; +METH-1164 PO; -METH1TAB40 PO
[2020-12-15 18:28] LABS: HEPATITIS B SURFACE ANTIGEN NEGATIVE (NEGATIVE); HEPATITIS C VIRUS ABY INDEX < 0.0 INDEX (<0.8)
== END ==
LOC: M SFHCRHEU 11:34
PROVIDERS: ATTEND Internal Medicine
DX: M05.79 Rheumatoid arthritis with rheumatoid factor of multiple sites without organ or systems involvement (principal)
CPT/HCPCS: 86480; 86704; 86803; 87340; G0463

== ENCOUNTER 2021-03-05 05:17 | Inpatient (IN) | payer MEDICARE, OTHER ==
[2021-03-05] VITALS (15 sets, daily range): BP systolic 124–183; BP diastolic 56–92; O2SAT 95–97
[~2021-03-05] VITALS: Ht 160 cm; Wt 93.6 kg
--- NOTE | 2021-03-05 08:33 | REP ---
INDICATION: COVID+. COMPARISON: Comparison chest x-ray January 02, 2011. TECHNIQUE: Portable upright AP chest radiograph. FINDINGS: There are patchy areas of pulmonary infiltrate in the right perihilar right base and left base regions consistent with history of viral pneumonia. Heart is enlarged unchanged. Pulmonary vasculature is slightly cephalized. There is no evidence of pleural effusion or pulmonary edema.. IMPRESSION: Patchy bilateral peripheral infiltrates consistent with viral pneumonia. Cardiomegaly.. <Electronically signed by Duong Bruno > 03/05/21 0828
[2021-03-05] MEDS: amLODIPine 5 MG TAB PO SCH ×2 (09:00→18:19)
[2021-03-05] MEDS ORDERED: ASPIRIN 81MG ENTERIC TABLET PO SCH (09:00)
[2021-03-05 09:06] LABS: HEMATOCRIT 24.9 % (36.0-47.0); HEMOGLOBIN 8.5 g/dl (12.0-15.5); MEAN CORPUSCULAR HEMOGLOBIN 35.6 pg (27.0-33.0); MEAN CORPUSCULAR HGB CONC 34.1 g/dl (32.0-36.5); MEAN CORPUSCULAR VOLUME 104.2 fl (80.0-96.0); PLATELET COUNT, AUTOMATED 178 10^3/uL (150-450); RED BLOOD COUNT 2.39 10^6/uL (4.00-5.40); WHITE BLOOD COUNT 5.4 10^3/uL (4.0-10.0)
[2021-03-05 09:21] LABS: INR 1.1; PARTIAL THROMBOPLASTIN TIME 24.2 SECONDS (24.2-38.5); PROTHROMBIN TIME 14.5 SECONDS (12.5-14.3)
[2021-03-05] MEDS: dexameTHASONE 4 MG/ML 1ML VIAL (J1100 PER 1MG) IV SCH (09:23)
[2021-03-05 09:24] LABS: D-DIMER QUANT 3637.59 ng/ml (<500)
[2021-03-05 09:30] LABS: ALBUMIN 2.6 GM/DL (3.2-5.2); BILIRUBIN,DIRECT 0.2 MG/DL (0.0-0.2); BILIRUBIN,TOTAL 0.4 MG/DL (0.2-1.0); C REACTIVE PROTEIN QUANTITATIV 11.3 MG/DL (0.00-0.30); CALCIUM LEVEL 7.9 MG/DL (8.8-10.2); CREATININE FOR GFR 5.31 MG/DL (0.55-1.30); GLOMERULAR FILTRATION RATE 8.6 (>45); POTASSIUM SERUM 4.5 MEQ/L (3.5-5.1); TOTAL PROTEIN 6.5 GM/DL (6.4-8.2); TROPONIN I 0.09 NG/ML (< 0.10)
[2021-03-05 09:41] LABS: ATYPICAL LYMPH 1 % (0-5); LYMPHOCYTES 24 % (16-44); MONOCYTES 5 % (0-5); NEUTROPHILS 69 % (28-66)
[2021-03-05 09:46] LABS: SCHISTOCYTES 1+
[2021-03-05 09:47] LABS: PLATELET ESTIMATE NORMAL (NORMAL)
[2021-03-05 09:58] LABS: AMORPHOUS SEDIMENT SMALL (NEGATIVE); APPEARANCE, URINE HAZY (CLEAR); BACTERIA, URINE AUTO 1+ (NEGATIVE); BILIRUBIN, URINE AUTO NEGATIVE (NEGATIVE); BLOOD, URINE BLOOD 2+ (NEGATIVE); COLOR, URINE YELLOW (YELLOW); GLUCOSE, URINE (UA) AUTO NEGATIVE (NEGATIVE); KETONE, URINE AUTO NEGATIVE (NEGATIVE); LEUKOCYTE ESTERASE, URINE AUTO NEGATIVE (NEGATIVE); NITRITE, URINE AUTO NEGATIVE (NEGATIVE); PROTEIN, URINE AUTO 2+ mg/dL (NEGATIVE); RBC, URINE AUTO 0 /HPF (0-3); SPECIFIC GRAVITY URINE AUTO 1.012 (1.002-1.035); SQUAMOUS EPITHELIAL CELL UR AU 1 /HPF (0-6); UROBILINOGEN, URINE AUTO 0.2 mg/dL (0.0-2.0); WBC, URINE AUTO 3 /HPF (0-3)
[2021-03-05] MEDS ORDERED: REMDESIVIR 200 MG in NS 250 ML IV ONE (10:00)
[2021-03-05] MEDS ORDERED: TORS10TA3 PO (10:15)
[2021-03-05] MEDS ORDERED: SUCR1ORA PO (10:15)
[2021-03-05] MEDS ORDERED: THERTAB21 PO (10:15)
[2021-03-05] MEDS ORDERED: clonazePAM 0.5 MG TAB PO PRN (11:15)
[2021-03-05] MEDS ORDERED: HYOSCYAMINE SULFATE 0.125 MG SUBL TABLET SL PRN (11:15)
[2021-03-05] MEDS ORDERED: DEXTROSE 50% 50 ML SYRINGE IV PRN (11:15)
[2021-03-05] MEDS ORDERED: GLUCOSE 4GM CHEW TABLET PO PRN (11:15)
[2021-03-05] MEDS ORDERED: GLUCAGON INJ 1MG VIAL SC PRN (11:15)
[2021-03-05] MEDS ORDERED: SODIUM CHLORIDE 0.9% INJ 10 ML SYR IV ONE (12:00)
[2021-03-05] MEDS ORDERED: SUCRALFATE 1 GM TAB PO SCH (12:00)
--- NOTE | 2021-03-05 12:04 | HPEPDOC ---
[facility] Medical History & Physical Date of Admission Mar 05, 2021 Date of Service: Mar 05, 2021 History and Physical CHIEF COMPLAINT: Diarrhea, coronavirus Positive February 26 HISTORY OF PRESENT ILLNESS: 65-year-old female with history of chronic kidney disease, stage IV, Left arm AV fistula, hypertension, diabetes, nonalcoholic liver cirrhosis with fatty liver, presented to [facility] with complaints of 3-4 episodes of loose bowel movements for the past 2 days, decreased appetite without weight loss, nausea, vomiting or abdominal pain and fever 100.2, cough productive of white sputum at home since testing positive for coronavirus on February 26. Patient was found to have a creatinine of 5,was given intravenous fluids with normal saline 1 L IV bolus and transferred to [facility] for nephrology services if needed and given IV antibiotics. Patient denies any headaches, changes in vision, sore throat. Admits to loss of taste loss of appetite without any documented weight loss, generalized weakness, myalgias. Patient was in the bathroom having diarrhea but ran out of toilet paper called out to her by throwing a shampoo bottle at the door when he came to she had felt very weak and lowered herself down on the bathroom floor without hitting her head. She denied any loss of consciousness or syncopal episode. For one day. Patient said that she had black stools about twice at home, then subsequently had yellow stools with no obtain show blood or black tarry bowel movements. She denies any hematemesis, coffee-ground emesis and has had no recurrent black stools. . She denied any palpitations, chest pain, pressure, tightness, or shortness of breath. Patient is directly admitted to the coronavirus unit for acute on chronic renal failure in the setting of coronavirus induced diarrhea, coronavirus. Pneumonia with possible secondary bacterial infection, metabolic acidosis due to renal failure, anemia with hemoglobin of 8.5 and 1 episodes of black stool at home with possible GI bleed PAST MEDICAL HISTORY: Chronic kidney disease stage IV, hypertension, hypercholesterolemia, reflux, fib romyalgia, anemia, type 2 diabetes, nonalcoholic cirrhosis, fatty liver, recurrent gastric polyps, diverticulosis, chronic back pain, gastroesophageal reflux disease, fibromyalgia, anemia of chronic disease, type 2 diabetes, hyperglycemia, hyperuricemia, secondary hyperparathyroidism PAST SURGICAL HISTORY: AV fistula left arm adenoidectomy, , knee surgery, polypectomy, splenectomy, tonsillectomy SOCIAL HISTORY: Never smoked. Denies alcohol, recreational drug use. 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 Father at the age of 97 with hypertension. Mother at the age of 85 with open heart surgery, aortic valve replacement, mitral valve replacement ALLERGIES: Please see below. REVIEW OF SYSTEMS: 10 point review of systems negative aside from positive findings in HPI HOME MEDICATIONS: Please see below. PHYSICAL EXAMINATION: VITAL SIGNS: See below GENERAL APPEARANCE: Slight pallor nor icterus jaundice. No conversational dyspnea. No respiratory distress HEENT: No JVD, thyromegaly. Pupils equally round, reactive to light accommodation. Moist mucous membranes, no thyromegaly, cervical lymphadenopathy or carotid bruits. No stridor CARDIOVASCULAR: S1, S2, sinus rhythm LUNGS: Diminished breath sounds bibasilar fine crackles ABDOMEN: Positive bowel sounds, obese, soft, nontender, nondistended. No rebound or guarding EXTREMITIES: Left arm AV fistula trace lower extremity edema bilaterally LABORATORY DATA: See below. IMAGING: See below MICROBIOLOGY: Please see below. ASSESSMENT: 65-year-old female for code with past medical history significant for Chronic kidney disease stage IV, hypertension, hypercholesterolemia, reflux, fibromyalgia, anemia, type 2 diabetes, nonalcoholic cirrhosis, fatty liver, recurrent gastric polyps, diverticulosis, chronic back pain, gastroesophageal reflux disease, fibromyalgia, anemia of chronic disease, type 2 diabetes, hyperglycemia, hyperuricemia, secondary hyperparathyroidism , presented to [facility] with near syncopal episodes lowering herself down in the bathroom after having multiple bowel movements transferred to [facility] due to worsening renal dysfunction with a new creatinine of 5 in the setting of diarrhea, now admitted as an inpatient for 2 midnights for coronavirus 19, viral pneumonia, coronavirus 19 induced diarrhea, possible secondary bacterial pneumonia, acute on chronic renal failure, baseline stage IV, now stage V. Renal failure, acute metabolic acidosis, near syncope due to volume depletion, dehydration. coronavirus 19, viral pneumonia, coronavirus 19 induced diarrhea, possible secondary bacterial pneumonia, acute on chronic renal failure, baseline stage IV, now stage V. Renal failure, acute metabolic acidosis, near syncope due to volume depletion/ dehydration. Acute GI bleed Acute blood loss anemia hypertension, hypercholesterolemia, reflux, fibromyalgia, type 2 diabetes, nonalcoholic cirrhosis, fatty liver, recurrent gastric polyps, diverticulosis, chronic back pain, gastroesophageal reflux disease, fibromyalgia, hyperuricemia, secondary hyperparathyroidism Left AV arm fistula PLAN: Patient is admitted as an inpatient for 2 midnights and treated with IV REM DESE VIR, IV Decadron, , Avelox, bicarbonate drip for metabolic acidosis due to worsening renal dysfunction. Telemetry monitoring, electrolyte monitoring, especially ionized calcium now that the patient is on bicarbonate drip. Check stool for blood. compression stockings for now. Type and screen in case the patient needs blood transfusion. Consent signed. Vital Signs Vital Signs Date Time Temp Pulse Resp B/P (MAP) Pulse Ox O2 Delivery O2 Flow Rate FiO2 03/05/21 11:27 95 Room Air 03/05/21 11:27 99.6 65 18 179/81 (113) Laboratory Data Labs 24H Laboratory Tests 2 03/05/21 08:45: Neutrophils (%) (Auto) , Nucleated Red Blood Cells % (auto) 0.7H, Neutrophils 69H, Band Neutrophils 1, Lymphocytes (Manual) 24, Monocytes (Manual) 5, Atypical Lymphocytes 1, Macrocytosis 1+, Schistocytes 1+, Platelet Estimate NORMAL, Prothrombin Time 14.5H, Prothromb Time International Ratio 1.10, Activated Partial Thromboplast Time 24.2L, Fibrinogen 675H, D-Dimer, Quantitative 3637.59H, Anion Gap 11, Glomerular Filtration Rate 8.6L, Calcium Level 7.9L, Magnesium Level 2.0, Ferritin 411H, Total Bilirubin 0.4, Direct Bilirubin 0.2, Aspartate Amino Transf (AST/SGOT) 86H, Alanine Aminotransferase (ALT/SGPT) 33, Alkaline Phosphatase 52, Lactate Dehydrogenase 465H, Total Creatine Kinase 1493H, Troponin I 0.09, C-Reactive Protein, Quantitative 11.30H, HD-Ctw-I-Type Natriuretic Peptide 3248H, Total Protein 6.5, Albumin 2.6L, Albumin/Globulin Rat io 0.7L 03/05/21 09:38: Urine Color YELLOW, Urine Appearance HAZY, Urine pH 5.0, Urine Specific [place] 1.012, Urine Protein 2+H, Urine Glucose (Auto)(UA) NEGATIVE, Urine Ketones (Auto) NEGATIVE, Urine Blood 2+H, Urine Nitrite NEGATIVE, Urine Bilirubin NEGATIVE, Urine Urobilinogen 0.2, Urine Leukocyte Esterase (Auto) NEGATIVE, Urine WBC (Auto) 3, Urine RBC (Auto) 0, Urine Hyaline Casts (Auto) 4, Urine Bacteria (Auto) 1+H, Urine Squamous Epithelial Cells 1, Urine Amorphous Sediment (Auto) SMALLH, Urine Sperm (Auto) CBC/BMP Laboratory Tests 03/05/21 08:45 Microbiology Microbiology 03/05/21 Blood Culture, Received Pending 03/05/21 Blood Culture, Received Pending Home Medications Scheduled Allopurinol (Zyloprim) 300 Mg Tablet, 300 MG PO QHS Atorvastatin Calcium (Atorvastatin Calcium) 10 Mg Tab, 10 MG PO QHS Bumetanide (Bumetanide) 1 Mg Tablet, 2 MG PO BID AM AND HS Calcitriol (Calcitriol) 0.25 Mcg Capsule, 0.25 MCG PO DAILY Esomeprazole Magnesium (Nexium 24Hr) 20 Mg Cap, 40 MG PO BID Folic Acid (Folic Acid) 1 Mg Tab, 1 MG PO DAILY Gabapentin (Neurontin) 300 Mg Cap, 300 MG PO BID Gabapentin (Gabapentin) 100 Mg Capsule, 200 MG PO BID Insulin Glargine,Hum.rec.anlog (Toujeo Max Solostar) 300 Unit/1 Ml Insuln.pen, 110 UNITS SC QHS Insulin Human Lispro (Novolog) 100 U/Ml Inj, 1 DOSE SC AC PER SLIDING SCALE Magnesium Oxide (Magnesium Oxide) 400 Mg Tablet, 800 MG PO BID Multivit,Calc,Mins/Iron/Folic (Thera-M Tablet) 1 Each Tablet, 1 TAB PO DAILY Nadolol (Nadolol) 20 Mg Tab, 40 MG PO DAILY Sitagliptin Phosphate (Januvia) 25 Mg Tablet, 25 MG PO DAILY Telmisartan (Micardis) 80 Mg Tablet, 80 MG PO DAILY Terazosin HCl (Terazosin HCl) 2 Mg Capsule, 2 MG PO BID Torsemide (Torsemide) 10 Mg Tablet, 20 MG PO DAILY Scheduled PRN Acetaminophen (Tylenol Extra Strength) 500 Mg Tablet, 1,000 MG PO Q4H PRN for PAIN Clonazepam (Clonazepam) 0.5 Mg Tab, 0.5 MG PO BID PRN for ANXIETY AM AND HS Cyclosporine (Restasis) 0.05 % Emu, 1 DROP OU DAILY PRN for DRY EYES MAY USE BID PRN Hyoscyamine Sulfate (Hyoscyamine Sulfate) 0.125 Mg Tab, 0.125 MG SL Q6H PRN for DISCOMFORT Loperamide HCl (Loperamide) 2 Mg Capsule, 2 MG PO DAILY PRN for IBS SYMPTOMS Sucralfate (Sucralfate) 1 Gm/10 Ml Oral.susp, 10 ML PO QID PRN for DISCOMFORT Allergies Coded Allergies: Contrast Media (Verified Allergy, Severe, ANAPHYLAXIS, HIVES, 08/10/19) Iodinated Contrast Media (Verified Allergy, Severe, ANAPHYLAXIS, 08/10/19) Penicillins (Verified Allergy, Severe, THICK TONGUE, EYE SWELLING, 08/10/19) Sulfa (Sulfonamide Antibiotics) (Verified Allergy, Severe, THICK TONGUE, EYE SWELLING, 08/10/19) influenza virus vaccine ts [id number] (36 mos,up) (Verified Allergy, Severe, guillain-ruano syndrome, 08/10/19) iodine (Verified Allergy, Severe, ANAPHYLAXIS, 08/10/19) latex (Verified Allergy, Severe, TONGUE SWELLING, ANAPHYLAXIS, 08/10/19) shellfish derived (Verified Allergy, Severe, ANAPHYLAXIS, 08/10/19) TAPE (Verified Allergy, Intermediate, red rash, 08/10/19) PLASTIC TAPE; FABRIC TAPE IS OK clonidine (Verified Allergy, Intermediate, RASH, 08/10/19) pneumococcal vaccine (Verified Allergy, Intermediate, FLU-LIKE SYMPTOMS; NAUSEA, DIARRHEA, 08/10/19) sumatriptan (Verified Allergy, Intermediate, WEIGHT GAIN, FLUID RETENTION; STATES IT DOES NOT WORK, 08/10/19) morphine (Verified Adverse Reaction, Severe, HALLUCINATIONS, PARANOIA, 08/10/19) Grapefruit (Unverified Adverse Reaction, Intermediate, INTERACTION WITH MEDS, 08/10/19) PER PT, NO ANAPHYLAXIS, PREVIOUSLY RECORDED ibuprofen (Verified Adverse Reaction, Intermediate, PER KIDNEY FUNCTION, 08/10/19) pregabalin (Verified Adverse Reaction, Intermediate, SWELLING, FLUID RETENTION, 08/10/19) verapamil (Verified Adverse Reaction, Intermediate, FLUID RETENTION; STATES IT DOES NOT WORK, 08/10/19) fentanyl (Verified Adverse Reaction, Unknown, will refuse, 08/10/19) WAS OVERDOSED ON MED POST PREVIOUS SURGERY; STATES SHE DID NOT WAKE UP FOR 3 DAYS A-FIB/CHADSVASC A-FIB History Current/History of A-Fib/PAF?: No Current PO Anticoag Therapy: No Age/Risk Factor Scoring CHADSVASC: CHADSVASC Response (Comments) Value Age Risk Factor Age 65-74 years old 1 Gender Risk Factor Female 1 Hx of CHF No 0 Hx of HTN Yes 1 Hx of Stroke/TIA/or VTE No 0 Hx of Diabetes Yes 1 Hx of Vascular Disease No 0 Total 4 Treatment Treatment ordered: NONE Reason Anticoagulant not given: Current bleeding TIARA LEIJA MD Mar 05, 2021 12:03
[2021-03-05] MEDS: CALCITRIOL 0.25 MCG CAP (S0169) PO SCH (12:10)
[2021-03-05] MEDS: FOLIC ACID 1 MG TAB PO SCH (12:10)
[2021-03-05] MEDS: MULTIVITAMINS/MINERALS THERAP 1 TAB PO SCH (12:10)
[2021-03-05] MEDS: HumaLOG INSULIN (NovoLOG) PER UNIT SC SCH ×2 (12:14→17:40)
[2021-03-05] MEDS: PANTOPRAZOLE 40MG VIAL (C9113 PER 1) IV SCH ×2 (12:15→19:43)
--- NOTE | 2021-03-05 12:32 | REP ---
INDICATION: r/o hydronephrosis creatinine 5. COMPARISON: Comparison CT study August 10, 2019. Comparison sonography August 12, 2016.. TECHNIQUE: Urinary tract sonography. FINDINGS: Scanning at the level of the urinary bladder shows no abnormality. Renal cortical echogenicity pattern is normal. There is no evidence of hydronephrosis.. There are bilateral renal cortical cysts. A peripheral cyst in the left mid kidney measures 3.3 x 3.2 x 2.8 cm. There is a peripheral cyst the upper pole the right kidney measuring 1.8 cm in greatest diameter. No mass or calculus is appreciated.. The right kidney measures 9.9 x 5.2 x 9.3 cm. Left renal dimensions are 12.0 x 4.6 x 5.8 cm. Incidental note is made of a complex septated cystic lesion in the right adnexa consistent with right ovarian cystic lesion. This measures 4.3 x 4.0 x 4.0 cm. This could be further evaluated by pelvic sonography. IMPRESSION: Bilateral renal cortical cysts. No evidence of hydronephrosis, renal mass, or calculus. Incidental 4 cm cystic lesion right ovary in this postmenopausal woman. Consider pelvic sonography. I note that previous CT studies have shown cystic changes in the right ovary as well.. <Electronically signed by Duong Bruno > 03/05/21 2034
[2021-03-05] MEDS: NADOLOL 20MG TABLET PO SCH (13:10)
[2021-03-05] MEDS: SODIUM BICARBONATE 150 MEQ in D5W 1,000 ML IV SCH (13:10)
[2021-03-05] MEDS: ACETAMINOPHEN 500 MG TAB PO PRN (14:29)
[2021-03-05] MEDS ORDERED: POLYVINYL ALCOHOL OPHTH SOLN 15 ML(LIQUITEARS) OU PRN (14:40)
[2021-03-05] MEDS: TERAZOSIN 1 MG CAP PO SCH ×2 (14:45→20:45)
[2021-03-05] MEDS: SUCRALFATE SUSP 1GM/10ML UD PO SCH ×2 (17:40→20:43)
[2021-03-05] MEDS ORDERED: MOXIFLOXACIN 400 MG TAB PO SCH (18:00)
[2021-03-05] MEDS ORDERED: cloNIDine 0.1MG TABLET PO ONE (18:20)
[2021-03-05] MEDS: **hydrALAZINE** 10 MG TAB PO SCH (18:54)
[2021-03-05] MEDS: allopurinoL 300 MG TAB PO SCH (20:45)
[2021-03-05] MEDS: methocarbamoL 500 MG TAB PO SCH (20:45)
[2021-03-05] MEDS ORDERED: ATORVASTATIN 10 MG TAB PO SCH (21:00)
[2021-03-05] MEDS ORDERED: HumaLOG INSULIN (NovoLOG) PER UNIT SC SCH (21:00)
[2021-03-05 21:40] LABS: HEMATOCRIT 31.4 % (36.0-47.0)
[2021-03-05 21:51] LABS: HEMOGLOBIN 10.8 g/dl (12.0-15.5)
--- NOTE | 2021-03-05 23:22 | ECGEPIP ---
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 Mild IVCD Nonspecific ST abnormality Last tracing on 08/10/19 at 0:10. No remarkable changes Electronically Signed on 03-05-2021 23:22:17 EDT by Anthony Ray
[2021-03-06] VITALS (13 sets, daily range): BP systolic 134–170; BP diastolic 68–86; O2SAT 94–96
[2021-03-06] MEDS: **hydrALAZINE** 10 MG TAB PO SCH ×3 (00:14→12:00)
[2021-03-06] MEDS ORDERED: diphenhydrAMINE 25MG CAP PO PRN (02:10)
[2021-03-06] MEDS: ACETAMINOPHEN 500 MG TAB PO PRN ×3 (02:26→16:18)
[2021-03-06] MEDS: SODIUM BICARBONATE 150 MEQ in D5W 1,000 ML IV SCH ×2 (05:14→15:57)
[2021-03-06 07:00] LABS: BASO % 0.3 % (0.0-1.0); HEMATOCRIT 33.9 % (36.0-47.0); HEMOGLOBIN 11.6 g/dl (12.0-15.5); LYMPH # 0.6 10^3/uL (1.5-5.0); LYMPH % 9.3 % (24.0-44.0); MEAN CORPUSCULAR HEMOGLOBIN 33.3 pg (27.0-33.0); MEAN CORPUSCULAR HGB CONC 34.2 g/dl (32.0-36.5); MEAN CORPUSCULAR VOLUME 97.4 fl (80.0-96.0); MONO # 0.3 10^3/uL (0.0-0.8); MONO % 4.4 % (2.0-8.0); NEUTROPHILS % 85.3 % (36.0-66.0); RED BLOOD COUNT 3.48 10^6/uL (4.00-5.40); WHITE BLOOD COUNT 5.9 10^3/uL (4.0-10.0)
[2021-03-06 07:31] LABS: PLATELET COUNT, AUTOMATED 156 10^3/uL (150-450)
[2021-03-06] MEDS: HumaLOG INSULIN (NovoLOG) PER UNIT SC SCH ×3 (07:43→17:35)
[2021-03-06] MEDS: SUCRALFATE SUSP 1GM/10ML UD PO SCH ×3 (07:43→17:35)
[2021-03-06] MEDS ORDERED: LEVEMIR (INSULIN DETEMIR) 1 UNITS/0.01ML SC ONE ×2 (08:00→10:00)
--- NOTE | 2021-03-06 08:24 | IPNPDOC ---
Date Seen The patient was seen on 03/06/21. Progress Note S: pt said [facility] md did a rectal exam and may have hit her hemorrhoids, with rectal bleed since admission . no dizziness/lightheaded ness. 3 brbpr yesterday s/p 2u rbc transfusion. 700 ml urine output. still slight sob. no abd pain. O: PHYSICAL EXAMINATION: VITAL SIGNS: See below GENERAL APPEARANCE: no apllor No conversational dyspnea. No respiratory distress HEENT: No JVD, thyromegaly. Pupils equally round, reactive to light accommodation. Moist mucous membranes, no thyromegaly, cervical lymphadenopathy or carotid bruits. No stridor CARDIOVASCULAR: S1, S2, sinus rhythm LUNGS: Diminished breath sounds bibasilar fine crackles ABDOMEN: Positive bowel sounds, obese, soft, nontender, nondistended. No rebound or guarding EXTREMITIES: Left arm AV fistula trace lower extremity edema bilaterally LABORATORY DATA: See below. IMAGING: See below MICROBIOLOGY: Please see below. ASSESSMENT: 65-year-old female for code with past medical history significant for Chronic kidney disease stage IV, hypertension, hypercholesterolemia, reflux, fibromyalgia, anemia, type 2 diabetes, nonalcoholic cirrhosis, fatty liver, recurrent gastric polyps, diverticulosis, chronic back pain, gastroesophageal reflux disease, fibromyalgia, anemia of chronic disease, type 2 diabetes, hyperglycemia, hyperuricemia, secondary hyperparathyroidism , presented to [facility] with near syncopal episodes lowering herself down in the bathroom after having multiple bowel movements transferred to [facility] due to worsening renal dysfunction with a new creatinine of 5 in the setting of diarrhea, now admitted as an inpatient for 2 midnights for coronavirus 19, viral pneumonia, coronavirus 19 induced diarrhea, possible secondary bacterial pneumonia, acute on chronic renal failure, baseline stage IV, now stage V. Renal failure, acute metabolic acidosis, near syncope due to volume depletion, dehydration. coronavirus 19, viral pneumonia, coronavirus 19 induced diarrhea, possible secondary bacterial pneumonia, acute on chronic renal failure, baseline stage IV, now stage V. Renal failure, acute metabolic acidosis, near syncope due to volume depletion/ dehydration. Acute GI bleed, possible hemorrhoidal bleeding Acute blood loss anemia S/P 2UNIT RBC TRANSFUSION 03/05/21 hypertension, hypercholesterolemia, reflux, fibromyalgia, type 2 diabetes, nonalcoholic cirrhosis, fatty liver, recurrent gastric polyps, diverticulosis, chronic back pain, gastroesophageal reflux disease, fibromyalgia, hyperuricemia, secondary hyperparathyroidism Left AV arm fistula PLAN: off ac, and no antiplt agents. s/p 2urbc transfusion. ppi and carafate. iv remdesevir, iv decadron. clear liquid for now until bleeding subsides. if possible ugib, may need gi once respiratory status improves. still on iv bicarb gtt tele. adjust electrolytes with supplements if needed. recheck serial h&h and transfuse as needed for symptomatic anemia or acute blood loss. VS, I&O, 24H, Fishbone Vital Signs/I&O Vital Signs Date Time Temp Pulse Resp B/P (MAP) Pulse Ox O2 Delivery O2 Flow Rate FiO2 03/06/21 07:53 97.4 69 18 168/78 (108) 96 Room Air I&O- Last 24 Hours up to 6 AM 03/06/21 06:00 Intake Total 3250 ml Output Total 1100 ml Balance 2150 ml Laboratory Data 24H LABS Laboratory Tests 2 03/05/21 08:45: Neutrophils (%) (Auto) , Nucleated Red Blood Cells % (auto) 0.7H, Neutrophils 69H, Band Neutrophils 1, Lymphocytes (Manual) 24, Monocytes (Manual) 5, Atypical Lymphocytes 1, Macrocytosis 1+, Schistocytes 1+, Platelet Estimate NORMAL, Prothrombin Time 14.5H, Prothromb Time International Ratio 1.10, Activated Partial Thromboplast Time 24.2L, Fibrinogen 675H, D-Dimer, Quantitative 3637.59H, Anion Gap 11, Glomerular Filtration Rate 8.6L, Calcium Level 7.9L, Magnesium Level 2.0, Ferritin 411H, Total Bilirubin 0.4, Direct Bilirubin 0.2, Aspartate Amino Transf (AST/SGOT) 86H, Alanine Aminotransferase (ALT/SGPT) 33, Alkaline Phosphatase 52, Lactate Dehydrogenase 465H, Total Creatine Kinase 1493H, Troponin I 0.09, C-Reactive Protein, Quantitative 11.30H, HC-Gds-H-Type Natriuretic Peptide 3248H, Total Protein 6.5, Albumin 2.6L, Albumin/Globulin Ratio 0.7L 03/05/21 09:38: Urine Color YELLOW, Urine Appearance HAZY, Urine pH 5.0, Urine Specific [place] 1.012, Urine Protein 2+H, Urine Glucose (Auto)(UA) NEGATIVE, Urine Ketones (Auto) NEGATIVE, Urine Blood 2+H, Urine Nitrite NEGATIVE, Urine Bilirubin NEGATIVE, Urine Urobilinogen 0.2, Urine Leukocyte Esterase (Auto) NEGATIVE, Urine WBC (Auto) 3, Urine RBC (Auto) 0, Urine Hyaline Casts (Auto) 4, Urine Bacteria (Auto) 1+H, Urine Squamous Epithelial Cells 1, Urine Amorphous Sediment (Auto) SMALLH, Urine Sperm (Auto) 03/05/21 11:53: Bedside Glucose (Misc Panel) 217H 03/05/21 16:52: Bedside Glucose (Misc Panel) 343H 03/05/21 20:12: Bedside Glucose (Misc Panel) 337H 03/06/21 05:25: Bedside Glucose (Misc Panel) 392H 03/06/21 06:39: Immature Granulocyte % (Auto) 0.7, Neutrophils (%) (Auto) 85.3H, Lymphocytes (%) (Auto) 9.3L, Monocytes (%) (Auto) 4.4, Eosinophils (%) (Auto) 0.0, Basophils (%) (Auto) 0.3, Neutrophils # (Auto) 5.0, Lymphocytes # (Auto) 0.6L, Monocytes # (Auto) 0.3, Eosinophils # (Auto) 0.0, Basophils # (Auto) 0.0, Nucleated Red Blood Cells % (auto) 0.8H CBC/BMP Laboratory Tests 03/05/21 08:45 03/05/21 21:16 03/06/21 06:39 Microbiology Microbiology 03/06/21 Stool Occult Blood (MEHRAN) - Final, Complete 03/05/21 Gastrointestinal Tract Panel (PCR) - Final, Complete 03/05/21 Blood Culture, Received Pending 03/05/21 Blood Culture, Received Pending TIARA LEIJA MD Mar 06, 2021 08:24
[2021-03-06] MEDS ORDERED: PANTOPRAZOLE 40MG VIAL (C9113 PER 1) IV ONE (09:00)
[2021-03-06 09:03] LABS: ALBUMIN 2.6 GM/DL (3.2-5.2); BILIRUBIN,DIRECT 0.2 MG/DL (0.0-0.2); BILIRUBIN,TOTAL 0.4 MG/DL (0.2-1.0); CALCIUM LEVEL 8.2 MG/DL (8.8-10.2); CREATININE FOR GFR 4.75 MG/DL (0.55-1.30); GLOMERULAR FILTRATION RATE 9.7 (>45); MAGNESIUM LEVEL 2.3 MG/DL (1.8-2.4); POTASSIUM SERUM 4.5 MEQ/L (3.5-5.1); TOTAL PROTEIN 6.9 GM/DL (6.4-8.2)
[2021-03-06] MEDS: PANTOPRAZOLE SODIUM 40 MG in D5W 50 ML IV SCH ×3 (09:15→17:31)
[2021-03-06] MEDS: dexameTHASONE 4 MG/ML 1ML VIAL (J1100 PER 1MG) IV SCH (09:20)
[2021-03-06] MEDS: MULTIVITAMINS/MINERALS THERAP 1 TAB PO SCH (09:20)
[2021-03-06] MEDS: FOLIC ACID 1 MG TAB PO SCH (09:21)
[2021-03-06] MEDS: amLODIPine 5 MG TAB PO SCH (09:21)
[2021-03-06] MEDS: CALCITRIOL 0.25 MCG CAP (S0169) PO SCH (09:21)
[2021-03-06] MEDS: TERAZOSIN 1 MG CAP PO SCH (09:21)
[2021-03-06] MEDS: REMDESIVIR 100 MG in NS 250 ML IV SCH (09:22)
[2021-03-06] MEDS: NADOLOL 20MG TABLET PO SCH (09:22)
[2021-03-06] MEDS: SODIUM CHLORIDE 0.9% INJ 10 ML SYR IV SCH (09:59)
[2021-03-06 12:34] LABS: HEMATOCRIT 31.6 % (36.0-47.0); HEMOGLOBIN 10.8 g/dl (12.0-15.5)
[2021-03-06] MEDS ORDERED: NITROGLYCERIN 0.4 MG SUBL TABLET SL PRN (15:00)
[2021-03-06] MEDS ORDERED: NITROGLYCERIN 0.4 MG SUBL TABLET SL STA (15:00)
[2021-03-06] MEDS ORDERED: hydrALAZINE 20MG/ML 1ML VIAL (J0360 PER 20MG) IV PRN (15:05)
[2021-03-06] MEDS: METOPROLOL 5 MG/5 ML VIAL IV SCH ×2 (15:32→21:44)
[2021-03-06] MEDS ORDERED: GI COCKTAIL 50ML BTL(HYOSCYAMINE/MAALOX/LIDOCAINE VISCOUS)(1:3:1) PO ONE (16:00)
[2021-03-06] MEDS ORDERED: METOCLOPRAMIDE INJ 10MG/2ML VIAL (J2765 PER 1) IV ONE (16:00)
[2021-03-06 17:01] LABS: CK-MB VALUE MASS 17.2 NG/ML (<3.6); MB/CK RELATIVE INDEX 1.76 (< OR =4); TROPONIN I 0.04 NG/ML (< 0.10)
[2021-03-06] MEDS ORDERED: GI COCKTAIL 50ML BTL(HYOSCYAMINE/MAALOX/LIDOCAINE VISCOUS)(1:3:1) PO PRN (18:00)
[2021-03-06 19:02] LABS: HEMATOCRIT 30.1 % (36.0-47.0); HEMOGLOBIN 10.5 g/dl (12.0-15.5)
[2021-03-06] MEDS ORDERED: RAMELTEON 8 MG TAB (ROZEREM) PO PRN (20:00)
[2021-03-06] MEDS: methocarbamoL 500 MG TAB PO SCH (21:36)
[2021-03-06] MEDS: allopurinoL 300 MG TAB PO SCH (21:36)
[2021-03-07] VITALS (9 sets, daily range): BP systolic 138–150; BP diastolic 68–86; O2SAT 92–95
[2021-03-07] MEDS: SUCRALFATE SUSP 1GM/10ML UD PO SCH ×5 (00:02→23:22)
[2021-03-07] MEDS: HumaLOG INSULIN (NovoLOG) PER UNIT SC SCH ×5 (00:06→21:12)
[2021-03-07] MEDS: PANTOPRAZOLE SODIUM 40 MG in D5W 50 ML IV SCH ×4 (00:10→12:13)
[2021-03-07 00:12] LABS: HEMATOCRIT 31.6 % (36.0-47.0); HEMOGLOBIN 10.9 g/dl (12.0-15.5)
[2021-03-07] MEDS: SODIUM BICARBONATE 150 MEQ in D5W 1,000 ML IV SCH ×2 (03:12→15:12)
[2021-03-07 03:51] LABS: HEMATOCRIT 30.9 % (36.0-47.0); HEMOGLOBIN 10.7 g/dl (12.0-15.5); MEAN CORPUSCULAR HEMOGLOBIN 33.3 pg (27.0-33.0); MEAN CORPUSCULAR HGB CONC 34.6 g/dl (32.0-36.5); MEAN CORPUSCULAR VOLUME 96.3 fl (80.0-96.0); PLATELET COUNT, AUTOMATED 182 10^3/uL (150-450); RED BLOOD COUNT 3.21 10^6/uL (4.00-5.40); WHITE BLOOD COUNT 5.9 10^3/uL (4.0-10.0)
[2021-03-07] MEDS: METOPROLOL 5 MG/5 ML VIAL IV SCH ×4 (04:00→22:00)
[2021-03-07 04:02] LABS: INR 1.06; PROTHROMBIN TIME 14.1 SECONDS (12.5-14.3)
[2021-03-07 04:03] LABS: PARTIAL THROMBOPLASTIN TIME 28.9 SECONDS (24.2-38.5)
[2021-03-07 04:11] LABS: ATYPICAL LYMPH 2 % (0-5); LYMPHOCYTES 14 % (16-44); MONOCYTES 5 % (0-5); NEUTROPHILS 79 % (28-66)
[2021-03-07 04:12] LABS: ANISOCYTOSIS 2+; PLATELET ESTIMATE NORMAL (NORMAL)
[2021-03-07 04:13] LABS: OVALOCYTES 1+
[2021-03-07 04:16] LABS: BURR CELLS 1+
[2021-03-07 04:24] LABS: ALBUMIN 2.7 GM/DL (3.2-5.2); BILIRUBIN,DIRECT 0.1 MG/DL (0.0-0.2); BILIRUBIN,TOTAL 0.5 MG/DL (0.2-1.0); CREATININE FOR GFR 4.51 MG/DL (0.55-1.30); GLOMERULAR FILTRATION RATE 10.3 (>45); MAGNESIUM LEVEL 2.2 MG/DL (1.8-2.4); POTASSIUM SERUM 4.5 MEQ/L (3.5-5.1); TOTAL PROTEIN 7.2 GM/DL (6.4-8.2); TROPONIN I 0.03 NG/ML (< 0.10)
[2021-03-07] MEDS ORDERED: NITROGLYCERIN 2% OINT 1 GM *U/D* PKT TOP SCH (09:00)
[2021-03-07] MEDS ORDERED: LEVEMIR (INSULIN DETEMIR) 1 UNITS/0.01ML SC SCH (09:00)
[2021-03-07] MEDS: CALCITRIOL 0.25 MCG CAP (S0169) PO SCH (09:16)
[2021-03-07] MEDS: dexameTHASONE 4 MG/ML 1ML VIAL (J1100 PER 1MG) IV SCH (09:16)
[2021-03-07] MEDS: LEVEMIR (INSULIN DETEMIR) 1 UNITS/0.01ML SC SCH ×2 (09:17→21:13)
[2021-03-07] MEDS: NADOLOL 20MG TABLET PO SCH (09:17)
[2021-03-07] MEDS: REMDESIVIR 100 MG in NS 250 ML IV SCH (09:18)
[2021-03-07] MEDS: ACETAMINOPHEN 500 MG TAB PO PRN ×2 (09:19→21:14)
[2021-03-07] MEDS: SODIUM CHLORIDE 0.9% INJ 10 ML SYR IV SCH (10:52)
--- NOTE | 2021-03-07 11:28 | IPNPDOC ---
Date Seen The patient was seen on 03/07/21. Progress Note S: Unable to measure urine output adequately due to persistent diarrhea with bloody stools. Patient denies chest pain, pressure, tightness, lightheadedness, dizziness when she moves some bedroom to the bathroom. She has had 2-3 bloody bowel movements per day with hemoglobin remaining stable at 10 after she was transfused 2 units of RBCs on admission. No plans for immediate colonoscopy. Patient's appetite is slightly improved anxious to take a liquid diet this morning. She complained of feeling cold all night and requested space heater and extra blankets O: PHYSICAL EXAMINATION: VITAL SIGNS: See below GENERAL APPEARANCE: no pallor No conversational dyspnea. No respiratory distress Awake, alert, oriented 3. HEENT: No JVD, thyromegaly. Pupils equally round, reactive to light accommodation. Moist mucous membranes, no thyromegaly, cervical lymphadenopathy or carotid bruits. No stridor CARDIOVASCULAR: S1, S2, sinus rhythm LUNGS: Diminished breath sounds bibasilar fine crackles ABDOMEN: Positive bowel sounds, obese, soft, nontender, nondistended. No rebound or guarding EXTREMITIES: Left arm AV fistula trace lower extremity edema bilaterally LABORATORY DATA: See below. IMAGING: See below MICROBIOLOGY: Please see below. ASSESSMENT: 65-year-old female for code with past medical history significant for Chronic kidney disease stage IV, hypertension, hypercholesterolemia, reflux, fibromyalgia, anemia, type 2 diabetes, nonalcoholic cirrhosis, fatty liver, rec urrent gastric polyps, diverticulosis, chronic back pain, gastroesophageal reflux disease, fibromyalgia, anemia of chronic disease, type 2 diabetes, hyperglycemia, hyperuricemia, secondary hyperparathyroidism , presented to [facility] with near syncopal episodes lowering herself down in the bathroom after having multiple bowel movements transferred to [facility] due to worsening renal dysfunction with a new creatinine of 5 in the setting of diarrhea, now admitted as an inpatient for 2 midnights for coronavirus 19, viral pneumonia, coronavirus 19 induced diarrhea, possible secondary bacterial pneumonia, acute on chronic renal failure, baseline stage IV, now stage V. Renal failure, acute metabolic acidosis, near syncope due to volume depletion, dehydration. coronavirus 19, viral pneumonia, coronavirus 19 induced diarrhea, secondary bacterial pneumonia, acute on chronic renal failure, baseline stage IV, now stage V. Renal failure, acute metabolic acidosis, near syncope due to volume depletion/ dehydration. Acute lower GI bleed, possible hemorrhoidal bleeding Acute blood loss anemia S/P 2UNIT RBC TRANSFUSION 03/05/21 hypertension, hypercholesterolemia, reflux, fibromyalgia, type 2 diabetes, nonalcoholic cirrhosis, fatty liver, recurrent gastric polyps, diverticulosis, chronic back pain, gastroesophageal reflux disease, fibromyalgia, hyperuricemia, secondary hyperparathyroidism Left AV arm fistula obesity bmi 36.6 PLAN: Advanced to a liquid diet, general surgery, Dr. Kunz has been consulted with no immediate plans for colonoscopy. Patient will be treated conservatively with medications for now. She is currently on Carafate and PPI but has had no upper GI symptoms. Still on bicarbonate drip due to stage V Renal failure, being monitored by nephrology Dr. Ray, but not formally consulted. Urine output cannot be adequately measured due to urine incontinence with contamination with persistent diarrhea. Continued on IV remdesevir, decadron, abx, but not on antiplt or anticoagulant due to acute blood loss anemia and active GI bleed. VS, I&O, 24H, [facility] Vital Signs/I&O Vital Signs Date Time Temp Pulse Resp B/P (MAP) Pulse Ox O2 Delivery O2 Flow Rate FiO2 03/07/21 09:17 61 142/80 03/07/21 08:00 96.6 18 95 03/07/21 08:00 Room Air I&O- Last 24 Hours up to 6 AM 03/07/21 06:00 Intake Total 1470 ml Output Total 850 ml Balance 620 ml Laboratory Data 24H LABS Laboratory Tests 2 03/06/21 15:59: Total Creatine Kinase 977H, Creatine Kinase MB 17.2H, Creatine Kinase MB Relative Index 1.76, Troponin I 0.04# 03/06/21 17:30: Bedside Glucose (Misc Panel) 350H 03/06/21 23:53: Bedside Glucose (Misc Panel) 353H 03/07/21 03:46: Total Creatine Kinase 954H, Troponin I 0.03#, Neutrophils (%) (Auto) , Nucleated Red Blood Cells % (auto) 1.7H, Neutrophils 79H, Lymphocytes (Manual) 14L, Monocytes (Manual) 5, Atypical Lymphocytes 2, Anisocytosis 2+, Macrocytosis 1+, Ovalocytes 1+, Margarita Cells 1+, Acanthocytes 1+, Platelet Estimate NORMAL, Prothrombin Time 14.1H, Prothromb Time International Ratio 1.06, Activated Partial Thromboplast Time 28.9, Fibrinogen 637H, Anion Gap 11, Glomerular Filtration Rate 10.3L, Calcium Level 9.0, Magnesium Level 2.2, Ferritin 422H, Total Bilirubin 0.5, Direct Bilirubin 0.1, Aspartate Amino Transf (AST/SGOT) 79H, Alanine Aminotransferase (ALT/SGPT) 40, Alkaline Phosphatase 50, Lactate Dehydrogenase 637H, OW-Wel-Q-Type Natriuretic Peptide 2201H, Total Protein 7.2, Albumin 2.7L, Albumin/Globulin Ratio 0.6L, Procalcitonin 3.55 03/07/21 06:13: Bedside Glucose (Misc Panel) 356H 03/07/21 09:15: Bedside Glucose (Misc Panel) 362H CBC/BMP Laboratory Tests 03/06/21 12:13 03/06/21 18:39 03/07/21 00:02 03/07/21 03:46 Microbiology Microbiology 03/06/21 Stool Occult Blood (MEHRAN) - Final, Complete 03/05/21 Gastrointestinal Tract Panel (PCR) - Final, Complete 03/05/21 Blood Culture - Preliminary, Resulted No Growth after 48 hours. All Specime... 03/05/21 Blood Culture - Preliminary, Resulted No Growth after 48 hours. All Specime... TIARA LEIJA MD Mar 07, 2021 11:23
[2021-03-07] MEDS ORDERED: ONDANSETRON 4MG/2ML VIAL IV PRN (11:50)
[2021-03-07 16:11] LABS: BODY FLUID CULTURE Not indicated. (.); LEGIONELLA ANTIGEN URINE Negative (Negative); ORGANISM ID Not indicated. (.); SPECIMEN SOURCE Urine (.); URINE STREP PNEUMONIAE ANTIGEN Negative (Negative)
[2021-03-07] MEDS: allopurinoL 300 MG TAB PO SCH (21:14)
[2021-03-07] MEDS: methocarbamoL 500 MG TAB PO SCH (21:14)
[2021-03-07] MEDS: PANTOPRAZOLE 40MG VIAL (C9113 PER 1) IV SCH (21:14)
[2021-03-07] MEDS: NITROGLYCERIN 0.4% TOP SCH (21:15)
[2021-03-08] VITALS (9 sets, daily range): BP systolic 122–162; BP diastolic 68–78; O2SAT 88–95
[2021-03-08] MEDS: METOPROLOL 5 MG/5 ML VIAL IV SCH ×4 (03:27→22:00)
[2021-03-08] MEDS: SODIUM BICARBONATE 150 MEQ in D5W 1,000 ML IV SCH (03:46)
[2021-03-08] MEDS: SUCRALFATE SUSP 1GM/10ML UD PO SCH ×4 (06:19→23:37)
[2021-03-08] MEDS: HumaLOG INSULIN (NovoLOG) PER UNIT SC SCH ×4 (08:26→20:38)
[2021-03-08] MEDS: CALCITRIOL 0.25 MCG CAP (S0169) PO SCH (08:27)
[2021-03-08] MEDS: NADOLOL 20MG TABLET PO SCH (08:27)
[2021-03-08] MEDS: dexameTHASONE 4 MG/ML 1ML VIAL (J1100 PER 1MG) IV SCH (08:27)
[2021-03-08] MEDS: LEVEMIR (INSULIN DETEMIR) 1 UNITS/0.01ML SC SCH ×2 (08:27→21:32)
[2021-03-08] MEDS: PANTOPRAZOLE 40MG VIAL (C9113 PER 1) IV SCH ×2 (08:28→21:32)
[2021-03-08] MEDS: NITROGLYCERIN 0.4% TOP SCH ×2 (08:28→21:33)
[2021-03-08 08:43] LABS: HEMATOCRIT 30.5 % (36.0-47.0); HEMOGLOBIN 10.5 g/dl (12.0-15.5); MEAN CORPUSCULAR HEMOGLOBIN 33.4 pg (27.0-33.0); MEAN CORPUSCULAR HGB CONC 34.4 g/dl (32.0-36.5); MEAN CORPUSCULAR VOLUME 97.1 fl (80.0-96.0); PLATELET COUNT, AUTOMATED 186 10^3/uL (150-450); RED BLOOD COUNT 3.14 10^6/uL (4.00-5.40)
[2021-03-08 09:04] LABS: CALCIUM LEVEL 7.8 MG/DL (8.8-10.2); CREATININE FOR GFR 3.88 MG/DL (0.55-1.30); GLOMERULAR FILTRATION RATE 12.3 (>45); MAGNESIUM LEVEL 2.3 MG/DL (1.8-2.4); POTASSIUM SERUM 3.7 MEQ/L (3.5-5.1)
[2021-03-08 09:12] LABS: LYMPHOCYTES 5 % (16-44); MONOCYTES 2 % (0-5); NEUTROPHILS 92 % (28-66); PLATELET ESTIMATE NORMAL (NORMAL)
[2021-03-08] MEDS: NS 1,000 ML IV SCH ×2 (09:36→21:24)
[2021-03-08] MEDS: REMDESIVIR 100 MG in NS 250 ML IV SCH (09:36)
[2021-03-08] MEDS ORDERED: HumaLOG INSULIN (NovoLOG) PER UNIT SC ONE (10:15)
[2021-03-08 10:23] LABS: HEMATOCRIT 30.9 % (36.0-47.0); HEMOGLOBIN 10.3 g/dl (12.0-15.5); MEAN CORPUSCULAR HEMOGLOBIN 32.8 pg (27.0-33.0); MEAN CORPUSCULAR HGB CONC 33.3 g/dl (32.0-36.5); MEAN CORPUSCULAR VOLUME 98.4 fl (80.0-96.0); PLATELET COUNT, AUTOMATED 189 10^3/uL (150-450); RED BLOOD COUNT 3.14 10^6/uL (4.00-5.40); WHITE BLOOD COUNT 6.9 10^3/uL (4.0-10.0)
[2021-03-08 10:34] LABS: INR 1.11; PROTHROMBIN TIME 14.5 SECONDS (12.5-14.3)
[2021-03-08 10:35] LABS: PARTIAL THROMBOPLASTIN TIME 29.9 SECONDS (24.2-38.5)
[2021-03-08 10:38] LABS: D-DIMER QUANT 3390.73 ng/ml (<500)
[2021-03-08 10:46] LABS: ANISOCYTOSIS 2+; ATYPICAL LYMPH 1 % (0-5); LYMPHOCYTES 5 % (16-44); MONOCYTES 3 % (0-5); NEUTROPHILS 91 % (28-66); PLATELET ESTIMATE NORMAL (NORMAL)
[2021-03-08] MEDS: SODIUM CHLORIDE 0.9% INJ 10 ML SYR IV SCH ×2 (10:49→18:11)
[2021-03-08 11:13] LABS: C REACTIVE PROTEIN QUANTITATIV 5.44 MG/DL (0.00-0.30); CREATININE FOR GFR 4.36 MG/DL (0.55-1.30); GLOMERULAR FILTRATION RATE 10.7 (>45); MAGNESIUM LEVEL 2.3 MG/DL (1.8-2.4); POTASSIUM SERUM 3.7 MEQ/L (3.5-5.1)
[2021-03-08] MEDS ORDERED: LOPERAMIDE 2 MG CAPLET PO ONE (13:35)
[2021-03-08 14:09] LABS: MYCOPLASMA PNEUMONIAE IgG <100 U/mL (0-99); MYCOPLASMA PNEUMONIAE IgM <770 U/mL (0-769)
[2021-03-08] MEDS ORDERED: LIDOCAINE 1% MDV 20ML VIAL As Ordered ONE (14:41)
--- NOTE | 2021-03-08 14:56 | CR ---
CONSULTATION DATE: 03/07/2021 REASON FOR CONSULTATION: Blood in stool. HISTORY OF PRESENT ILLNESS: The patient is a 65-year-old female with history of chronic kidney disease, also recently diagnosed with COVID on February 26. While she was at home she was having loss of taste, headaches, changes in vision, sore throat and generalized weakness so she went to the emergency room in [place] and was transferred here on the mainly for rxkkr-ba-liyrofo renal failure as well the COVID pneumonia. In the emergency room in [place] she had been complaining of GI symptoms with multiple episodes of diarrhea as well as a couple black stools. Because of that they did a rectal exam in the emergency room and since then she has had multiple episodes of bright red rectal bleeding. She denied any vomiting of blood and no recurrent black stools in the past. This entire history was completely obtained over the phone since she is currently on the COVID floor in the hospital but I was able to discuss with her while she was here. She claims in the last two days since she has been here her bowel movements have improved. She denies any current bleeding. She does have history of hemorrhoids and she is also concerned about possibly a fissure because she claims that when they did the rectal exam in the emergency room at [place] she had extreme sharp pains and she has had sharp pains in her rectum since then. MEDICAL HISTORY: 1. Chronic kidney disease stage 4. 2. Hypertension. 3. Hypercholesterolemia. 4. GERD. 5. Fibromyalgia. 6. Type 2 diabetes. 7. Cirrhosis. 8. Fatty liver. 9. Diverticulosis. 10. Chronic back pain. 11. Secondary hyperparathyroidism. SURGICAL HISTORY: 1. AV fistula left arm. 2. Adenoidectomy. 3. . 4. Knee surgery. 5. Polypectomy. 6. Splenectomy. 7. Tonsillectomy. FAMILY HISTORY: Noncontributory. SOCIAL HISTORY: Denies drug, alcohol or tobacco abuse. ALLERGIES: MULTIPLE, PLEASE SEE MEDICAL RECORD. MEDICATIONS: Please see med rec. REVIEW OF SYSTEMS: Pertinent positives and negatives as noted in HPI. PHYSICAL EXAMINATION: Not obtained at this time. This was just a phone consult. LABS: Hemoglobin has been stable for the last two days ranging from 10.5 to 10.9. Vitals have all been stable. ASSESSMENT AND PLAN: The patient is a 66-year-old female with what sounds to be a traumatic rectal exam done at [facility]. She has had bright red rectal bleeding with severe sharp pains since then. This is suspicious for either hemorrhoids versus anal fissure. Recommendation at this time is to treat with Rectiv. I have spoken with the pharmacy and they were able to obtain some from an outside pharmacy for her to use while she is here. If this does not improve her symptoms then I will be able to see her in the office in a couple of weeks and we can do an anoscopy at that time to evaluate for internal hemorrhoids. All of her questions were answered. She had no other questions for me and I will continue to follow her as needed.
[2021-03-08] MEDS: LOPERAMIDE 2 MG CAPLET PO PRN ×3 (16:26→22:21)
[2021-03-08] MEDS ORDERED: SODIUM CHLORIDE 0.9% INJ 10 ML SYR IV PRN (17:50)
--- NOTE | 2021-03-08 20:17 | ECGEPIP ---
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
--- NOTE | 2021-03-08 20:31 | IPNPDOC ---
Text Note Date of Service The patient was seen on 03/08/21. NOTE Subjective: Patient was seen and examined this morning at bedside. Patient continues to endorse continued diarrhea. Tells me she has a history of IBS and typically responds to Imodium and would like to try it. Denies any shortness of breath denies chest pain or palpitations. Has been saturating well on room air. Refusing a Chaudhari catheter placed for accurate urine output measurements. Her hemoglobin has been stable. She's been able tolerate her diet well. Objective: Constitutional: Awake and alert, in no apparent distress ENT: Sclera are clear. Respiratory: Lungs CTA bilaterally. No respiratory distress. No use of accessory muscles. Saturating over 90% on room air even on ambulation Cardiovascular: RRR S1 and S2 are normal Gastrointestinal: Abdomen is soft, non distended, non tender, BS present. Musculoskeletal: Trace lower extremity edema Neurologic: No focal neurological deficit. Mental Status: A&O x3, normal affect Assessment: coronavirus 19, viral pneumonia, coronavirus 19 induced diarrhea, secondary bacterial pneumonia, acute on chronic renal failure, baseline stage IV, now stage V. Renal failure, acute metabolic acidosis, near syncope due to volume depletion/ dehydration. Acute lower GI bleed, possible hemorrhoidal bleeding Acute blood loss anemia S/P 2UNIT RBC TRANSFUSION 03/05/21 hypertension, hypercholesterolemia, reflux, fibromyalgia, type 2 diabetes, nonalcoholic cirrhosis, fatty liver, recurrent gastric polyps, diverticulosis, chronic back pain, gastroesophageal reflux disease, fibromyalgia, hyperuricemia, secondary hyperparathyroidism Left AV arm fistula obesity bmi 36.6 plan: Patient's diet was able to be advanced she tolerated well. We will try Imodium to help with diarrhea. Dr. Kunz was consulted surgery no need for immediate intervention regarding her lower GI bleed which is possibly related to hemo rrhoidal bleeding. Her hemoglobin has been stable after transfusion of 2 units of blood on 03/05/2021. She'll be treated with Carafate and PPI. She will follow up with gastroenterology at time of discharge. With regards to her renal failure I discussed the case with Dr. Ray who recommended more hydration and monitoring of her renal function between today and tomorrow. Should it fail to improve I will consult informally.Continued on IV remdesevir, decadron, abx, but not on antiplt or anticoagulant due to acute blood loss anemia and active GI bleed A [facility] Arsenio JOHNSON, I+O Arsenio JOHNSON I+O Laboratory Tests 03/08/21 08:10 03/08/21 10:00 Vital Signs Date Time Temp Pulse Resp B/P (MAP) Pulse Ox O2 Delivery O2 Flow Rate FiO2 03/08/21 20:00 97.9 67 21 144/72 (96) 92 Room Air 03/08/21 08:30 2.0 I&O- Last 24 Hours up to 6 AM 03/08/21 06:00 Intake Total 1070 ml Output Total 1245 ml Balance -175 ml BEN LOERA MD Mar 08, 2021 20:31
[2021-03-08] MEDS: allopurinoL 300 MG TAB PO SCH (21:25)
[2021-03-08] MEDS: ACETAMINOPHEN 500 MG TAB PO PRN (21:25)
[2021-03-08] MEDS: methocarbamoL 500 MG TAB PO SCH (21:25)
[2021-03-09] VITALS: BP 146/68
[2021-03-09 04:00] VITALS: BP 152/72
[2021-03-09] MEDS: METOPROLOL 5 MG/5 ML VIAL IV SCH (04:00)
[2021-03-09] MEDS: SODIUM CHLORIDE 0.9% INJ 10 ML SYR IV SCH ×2 (06:06→09:46)
[2021-03-09] MEDS: SUCRALFATE SUSP 1GM/10ML UD PO SCH ×2 (06:06→12:00)
[2021-03-09 06:38] LABS: BASO % 0.1 % (0.0-1.0); LYMPH # 0.8 10^3/uL (1.5-5.0); LYMPH % 8.9 % (24.0-44.0); MEAN CORPUSCULAR HEMOGLOBIN 33.2 pg (27.0-33.0); MEAN CORPUSCULAR HGB CONC 33.3 g/dl (32.0-36.5); MEAN CORPUSCULAR VOLUME 99.7 fl (80.0-96.0); MONO # 0.9 10^3/uL (0.0-0.8); MONO % 10.1 % (2.0-8.0); NEUTROPHILS # 7.2 10^3/uL (1.5-8.5); NEUTROPHILS % 79.5 % (36.0-66.0); PLATELET COUNT, AUTOMATED 182 10^3/uL (150-450); RED BLOOD COUNT 3.01 10^6/uL (4.00-5.40)
[2021-03-09 06:54] LABS: CALCIUM LEVEL 8.5 MG/DL (8.8-10.2); CREATININE FOR GFR 3.42 MG/DL (0.55-1.30); GLOMERULAR FILTRATION RATE 14.2 (>45); MAGNESIUM LEVEL 2.3 MG/DL (1.8-2.4); POTASSIUM SERUM 3.8 MEQ/L (3.5-5.1)
[2021-03-09] MEDS: ACETAMINOPHEN 500 MG TAB PO PRN (07:33)
[2021-03-09] MEDS: CALCITRIOL 0.25 MCG CAP (S0169) PO SCH (07:33)
[2021-03-09 07:39] VITALS: BP 158/82
[2021-03-09] MEDS: NADOLOL 20MG TABLET PO SCH (07:39)
[2021-03-09] MEDS: LEVEMIR (INSULIN DETEMIR) 1 UNITS/0.01ML SC SCH (07:41)
[2021-03-09] MEDS: HumaLOG INSULIN (NovoLOG) PER UNIT SC SCH ×2 (07:41→12:28)
[2021-03-09] MEDS: NITROGLYCERIN 0.4% TOP SCH (07:42)
[2021-03-09 07:52] VITALS: BP 158/82
[2021-03-09 07:54] VITALS: O2SAT 94
[2021-03-09] MEDS: REMDESIVIR 100 MG in NS 250 ML IV SCH (08:31)
[2021-03-09] MEDS: PANTOPRAZOLE 40MG VIAL (C9113 PER 1) IV SCH (08:31)
[2021-03-09] MEDS: dexameTHASONE 4 MG/ML 1ML VIAL (J1100 PER 1MG) IV SCH (08:31)
--- NOTE | 2021-03-09 11:03 | REP ---
PROCEDURE NAME: PICC LINE INSERTION W/SITERITE CLINICAL INFORMATION: poor iv access. needs iv bicarb gtt and iv meds. COMPARISON: None. PROCEDURE DESCRIPTION: The procedure was performed by HA Valles, under the direct supervision of Dr. Bruno. The risks and benefits of the procedure were explained to the patient and an informed consent was obtained both verbally and written. Directly prior to the start of the procedure a formal time-out was completed in the procedure room. The right basilic vein was localized using ultrasound guidance. The skin was prepped and draped in sterile fashion. Three mL of 1% lidocaine 10 mg/mL was used as a local anesthetic. Using ultrasound guidance the right basilic vein was cannulated, and a 0.018 guidewire was inserted and advanced to the level of SVC using fluoroscopic guidance. The needle was removed and a 5.5 Chinese dilator and peel-away sheath was inserted over the guidewire. A 5.5 Chinese dual lumen catheter was cut to a length of 35 cm. The dilator was removed and the catheter was inserted over the guidewire with the tip ending at the level of the SVC. The peel-away sheath was removed and the catheter was flushed with heparinized saline as per hospital protocol. The catheter was affixed to the skin and a sterile dressing was applied. The patient tolerated the procedure well and there were no immediate complications. CONCLUSION: PICC line insertion into the right basilic vein. 0.5 minutes of fluoroscopy time was utilized for this procedure. Some fluoroscopic images are performed with last image hold technology. These images require no additional radiation. <Electronically signed by Madelyn Jean > 03/09/21 [id number] <Electronically signed by Duong Bruno > 03/09/21 [id number]
[2021-03-09 11:50] VITALS: BP 142/78
[2021-03-09] MEDS: LOPERAMIDE 2 MG CAPLET PO PRN ×3 (12:28→15:24)
[2021-03-09] MEDS ORDERED: ANTI2TAB16 PO (13:52)
--- NOTE | 2021-03-09 14:03 | DS.PDOC ---
Discharge Summary General Date of Admission Mar 05, 2021 at 06:35 Date of Discharge 03/09/21 Discharge Summary PROCEDURES PERFORMED DURING STAY: [None]. ADMITTING/DISCHARGE DIAGNOSES: coronavirus 19, viral pneumonia, coronavirus 19 induced diarrhea, secondary bacterial pneumonia, acute on chronic renal failure, baseline stage IV, now stage V. Renal failure, acute metabolic acidosis, near syncope due to volume depletion/ dehydration. Acute lower GI bleed, possible hemorrhoidal bleeding Acute blood loss anemia S/P 2UNIT RBC COMPLICATIONS/CHIEF COMPLAINT: Covid Pneumonia,Syncope,[place]. HISTORY OF PRESENT ILLNESS/HOSPITAL COURSE: 65-year-old female for code with past medical history significant for Chronic kidney disease stage IV, hypertension, hypercholesterolemia, reflux, fibromyalgia, anemia, type 2 diabetes, nonalcoholic cirrhosis, fatty liver, recurrent gastric polyps, diverticulosis, chronic back pain, gastroesophageal reflux disease, fibromyalgia, anemia of chronic disease, type 2 diabetes, hyperglycemia, hyperuricemia, secondary hyperparathyroidism , presented to [facility] with near syncopal episodes lowering herself down in the bathroom after having multiple bowel movements transferred to [facility] due to worsening renal dysfunction with a new creatinine of 5 in the setting of diarrhea, now admitted as an inpatient for 2 midnights for coronavirus 19, viral pneumonia, coronavirus 19 induced diarrhea, possible secondary bacterial pneumonia, acute on chronic renal failure, baseline stage IV, now stage V. Renal failure, acute metabolic acidosis, near syncope due to volume depletion, dehydration. Patient's diet was able to be advanced she tolerated it well. Imodium appear to help with her diarrhea. her GI panel was negative. Dr. Kunz was consulted surgery no need for immediate intervention regarding her lower GI bleed which is possibly related to hemorrhoidal bleeding. Her hemoglobin has been stable after transfusion of 2 units of blood on 03/05/2021. She'll be treated with Carafate and PPI. She will follow up with gastroenterology at time of discharge. With regards to her renal failure she is back to her baseline with IV fluid hydrati on.she was treated with IV remdesevir, decadron, abx, but not on antiplt or anticoagulant due to acute blood loss anemia and active GI bleed. She was discharged home 03/09/2021 with follow-up with her PCP within a week, her train examiner, and a referral to gastroenterology. She was cleared by physical therapy DISCHARGE MEDICATIONS: Please see below. ALLERGIES: Please see below. PHYSICAL EXAMINATION ON DISCHARGE: On day of discharge she endorses that her diarrhea has improved with the Imodiu m. She's feeling a lot better and wanting to go home today. VITAL SIGNS: Please see below. Constitutional: Awake and alert, in no apparent distress ENT: Sclera are clear. Respiratory: Lungs CTA bilaterally. No respiratory distress. No use of accessory muscles. Saturating over 90% on room air even on ambulation Cardiovascular: RRR S1 and S2 are normal Gastrointestinal: Abdomen is soft, non distended, non tender, BS present. Musculoskeletal: Trace lower extremity edema Neurologic: No focal neurological deficit. Mental Status: A&O x3, normal affect LABORATORY DATA: Please see below. IMAGING: See chart PROGNOSIS: Fair ACTIVITY: [As tolerated]. DIET: Carbohydrate consistent diet DISPOSITION: Home with home health DISCHARGE INSTRUCTIONS: Please follow up with your primary care physician within 1 week from discharge. If you do not have one, please follow up with us to schedule an appointment. Please keep all of your follow up appointments. Please call central to book your appointments with hospital specialists. Please take all your medications as prescribed. Please call/come to Clinic or go to the Emergency Department if - Temp >101, intractable Nausea/Vomiting, Diarrhea, Mouth sores, Headaches, Altered mental status, Seizures, sudden onset of swelling, bleeding, shortness of breath or chest pain. Follow up with your train examiner Follow-up with gastroenterology for outpatient colonoscopy DISCHARGE CONDITION: [Stable]. TIME SPENT ON DISCHARGE: 45 minutes. Vital Signs/I&Os Vital Signs Date Time Temp Pulse Resp B/P (MAP) Pulse Ox O2 Delivery O2 Flow Rate FiO2 03/09/21 11:50 97.1 65 17 142/78 (99) 94 Room Air 03/08/21 08:30 2.0 I&O- Last 24 Hours up to 6 AM 03/09/21 06:00 Intake Total 4260 ml Output Total 1500 ml Balance 2760 ml Laboratory Data Labs 24H Laboratory Tests 2 03/08/21 16:34: Bedside Glucose (Misc Panel) 195H 03/08/21 19:18: Bedside Glucose (Misc Panel) 192H 03/09/21 06:18: Immature Granulocyte % (Auto) 1.4, Neutrophils (%) (Auto) 79.5H, Lymphocytes (%) (Auto) 8.9L, Monocytes (%) (Auto) 10.1H, Eosinophils (%) (Auto) 0.0, Basophils (%) (Auto) 0.1, Neutrophils # (Auto) 7.2, Lymphocytes # (Auto) 0.8L, Monocytes # (Auto) 0.9H, Eosinophils # (Auto) 0.0, Basophils # (Auto) 0.0, Nucleated Red Blood Cells % (auto) 2.3H, Anion Gap 9, Glomerular Filtration Rate 14.2L, Calcium Level 8.5L, Magnesium Level 2.3 03/09/21 11:49: Bedside Glucose (Misc Panel) 192H CBC/BMP Laboratory Tests 03/09/21 06:18 FSBS Laboratory Tests Test 03/08/21 16:34 03/08/21 19:18 03/09/21 11:49 Range/Units Bedside Glucose (Misc Panel) 195 192 192 80-115 MG/DL Microbiology Microbiology 03/06/21 Stool Occult Blood (MEHRAN) - Final, Complete 03/05/21 Gastrointestinal Tract Panel (PCR) - Final, Complete 03/05/21 Blood Culture - Preliminary, Resulted No Growth after 72 hours. All specime... 03/05/21 Blood Culture - Preliminary, Resulted No Growth after 72 hours. All specime... Discharge Medications Scheduled Allopurinol (Zyloprim) 300 Mg Tablet, 300 MG PO QHS, (Reported) Atorvastatin Calcium (Atorvastatin Calcium) 10 Mg Tab, 10 MG PO QHS, (Reported) Bumetanide (Bumetanide) 1 Mg Tablet, 2 MG PO BID, (Reported) AM AND HS Calcitriol (Calcitriol) 0.25 Mcg Capsule, 0.25 MCG PO DAILY, (Reported) Esomeprazole Magnesium (Nexium 24Hr) 20 Mg Cap, 40 MG PO BID, (Reported) Folic Acid (Folic Acid) 1 Mg Tab, 1 MG PO DAILY, (Reported) Gabapentin (Neurontin) 300 Mg Cap, 300 MG PO BID, (Reported) Gabapentin (Gabapentin) 100 Mg Capsule, 200 MG PO BID, (Reported) Insulin Glargine,Hum.rec.anlog (Toujeo Max Solostar) 300 Unit/1 Ml Insuln.pen, 110 UNITS SC QHS, (Reported) Insulin Human Lispro (Novolog) 100 U/Ml Inj, 1 DOSE SC AC, (Reported) PER SLIDING SCALE Magnesium Oxide (Magnesium Oxide) 400 Mg Tablet, 800 MG PO BID, (Reported) Multivit,Calc,Mins/Iron/Folic (Thera-M Tablet) 1 Each Tablet, 1 TAB PO DAILY, (Reported) Nadolol (Nadolol) 20 Mg Tab, 40 MG PO DAILY, (Reported) Sitagliptin Phosphate (Januvia) 25 Mg Tablet, 25 MG PO DAILY, (Reported) Sucralfate (Sucralfate) 1 Gm/10 Ml Oral.susp, 1 GM PO Q6H Telmisartan (Micardis) 80 Mg Tablet, 80 MG PO DAILY, (Reported) Terazosin HCl (Terazosin HCl) 2 Mg Capsule, 2 MG PO BID, (Reported) Torsemide (Torsemide) 10 Mg Tablet, 20 MG PO DAILY, (Reported) Scheduled PRN Acetaminophen (Tylenol Extra Strength) 500 Mg Tablet, 1,000 MG PO Q4H PRN for PAIN, (Reported) Clonazepam (Clonazepam) 0.5 Mg Tab, 0.5 MG PO BID PRN for ANXIETY, (Reported) AM AND HS Cyclosporine (Restasis) 0.05 % Emu, 1 DROP OU DAILY PRN for DRY EYES, (Reported) MAY USE BID PRN Hyoscyamine Sulfate (Hyoscyamine Sulfate) 0.125 Mg Tab, 0.125 MG SL Q6H PRN for DISCOMFORT, (Reported) Loperamide HCl (Loperamide) 2 Mg Capsule, 2 MG PO DAILY PRN for IBS SYMPTOMS, (Reported) Loperamide HCl (Anti-Diarrheal) 2 Mg Tablet, 2 MG PO ASDIRECTED PRN for DIARRHEA Allergies Coded Allergies: Contrast Media (Verified Allergy, Severe, ANAPHYLAXIS, HIVES, 08/10/19) Iodinated Contrast Media (Verified Allergy, Severe, ANAPHYLAXIS, 08/10/19) Penicillins (Verified Allergy, Severe, THICK TONGUE, EYE SWELLING, 08/10/19) Sulfa (Sulfonamide Antibiotics) (Verified Allergy, Severe, THICK TONGUE, EYE SWELLING, 08/10/19) influenza virus vaccine ts [id number] (36 mos,up) (Verified Allergy, Severe, guillain-ruano syndrome, 08/10/19) iodine (Verified Allergy, Severe, ANAPHYLAXIS, 08/10/19) latex (Verified Allergy, Severe, TONGUE SWELLING, ANAPHYLAXIS, 08/10/19) shellfish derived (Verified Allergy, Severe, ANAPHYLAXIS, 08/10/19) TAPE (Verified Allergy, Intermediate, red rash, 08/10/19) PLASTIC TAPE; FABRIC TAPE IS OK clonidine (Verified Allergy, Intermediate, RASH, 08/10/19) pneumococcal vaccine (Verified Allergy, Intermediate, FLU-LIKE SYMPTOMS; NAUSEA, DIARRHEA, 08/10/19) sumatriptan (Verified Allergy, Intermediate, WEIGHT GAIN, FLUID RETENTION; STATES IT DOES NOT WORK, 08/10/19) morphine (Verified Adverse Reaction, Severe, HALLUCINATIONS, PARANOIA, 08/10/19) Grapefruit (Unverified Adverse Reaction, Intermediate, INTERACTION WITH MEDS, 08/10/19) PER PT, NO ANAPHYLAXIS, PREVIOUSLY RECORDED ibuprofen (Verified Adverse Reaction, Intermediate, PER KIDNEY FUNCTION, 08/10/19) pregabalin (Verified Adverse Reaction, Intermediate, SWELLING, FLUID RETENTION, 08/10/19) verapamil (Verified Adverse Reaction, Intermediate, FLUID RETENTION; STATES IT DOES NOT WORK, 08/10/19) fentanyl (Verified Adverse Reaction, Unknown, will refuse, 08/10/19) WAS OVERDOSED ON MED POST PREVIOUS SURGERY; STATES SHE DID NOT WAKE UP FOR 3 DAYS TREESEBEN Thibodeaux MD Mar 09, 2021 14:03
[2021-03-09] MEDS ORDERED: SUCR1ORA PO (14:05)
== END 2021-03-09 16:24 | disposition home or self-care (01) | DRG 177 ==
LOC: M 4MAIN 06:35
PROVIDERS: ADMIT Internal Medicine; ATTEND Family Medicine
PROC: XW033E5 Introduction of Remdesivir Anti-infective into Peripheral Vein, Percutaneous Approach, New Technology Group 5 (ICD-10-PCS; principal; 2021-03-05)
PROC: 3E0333Z Introduction of Anti-inflammatory into Peripheral Vein, Percutaneous Approach (ICD-10-PCS; 2021-03-05)
PROC: 30233N1 Transfusion of Nonautologous Red Blood Cells into Peripheral Vein, Percutaneous Approach (ICD-10-PCS; 2021-03-05)
PROC: 02HV33Z Insertion of Infusion Device into Superior Vena Cava, Percutaneous Approach (ICD-10-PCS; 2021-03-08)
DX: U07.1 COVID-19 (principal); J12.82 Pneumonia due to coronavirus disease 2019; A08.39 Other viral enteritis; N18.5 Chronic kidney disease, stage 5; N25.81 Secondary hyperparathyroidism of renal origin; E87.2 Acidosis; N17.9 Acute kidney failure, unspecified; D62 Acute posthemorrhagic anemia; K62.5 Hemorrhage of anus and rectum; I12.0 Hypertensive chronic kidney disease with stage 5 chronic kidney disease or end stage renal disease; E78.00 Pure hypercholesterolemia, unspecified; K21.9 Gastro-esophageal reflux disease without esophagitis; M79.7 Fibromyalgia; K58.0 Irritable bowel syndrome with diarrhea; E11.22 Type 2 diabetes mellitus with diabetic chronic kidney disease; K74.60 Unspecified cirrhosis of liver; K64.9 Unspecified hemorrhoids; D63.8 Anemia in other chronic diseases classified elsewhere; K76.0 Fatty (change of) liver, not elsewhere classified; E79.0 Hyperuricemia without signs of inflammatory arthritis and tophaceous disease; Z79.4 Long term (current) use of insulin; Z79.899 Other long term (current) drug therapy; Z91.041 Radiographic dye allergy status; Z88.0 Allergy status to penicillin; Z88.2 Allergy status to sulfonamides; Z88.5 Allergy status to narcotic agent; Z88.6 Allergy status to analgesic agent; Z88.7 Allergy status to serum and vaccine; Z88.8 Allergy status to other drugs, medicaments and biological substances; Z91.013 Allergy to seafood; Z91.048 Other nonmedicinal substance allergy status

== ENCOUNTER → 2021-07-01 | Outpatient (CLI) | payer MEDICARE, OTHER ==
[~2021-07-01] MED LIST changes: +ANTI2TAB16 PO; +SUCR1ORA PO; +THERTAB21 PO; +TORS10TA3 PO
--- NOTE | 2021-07-04 00:54 | REPVR ---
PROCEDURE INFORMATION: Exam: CT Neck Without Contrast Exam date and time: 07/01/2021 11:27 AM Age: 66 years old Clinical indication: Mass, lump, or swelling in neck; Left; Additional info: Swelling/mass/lump in neck TECHNIQUE: Imaging protocol: Computed tomography images of the neck without contrast. Radiation optimization: All CT scans at this facility use at least one of these dose optimization techniques: automated exposure control; mA and/or kV adjustment per patient size (includes targeted exams where dose is matched to clinical indication); or iterative reconstruction. COMPARISON: CT Chest without contrast 08/10/2019 12:30 AM FINDINGS: Paranasal sinuses: Complete opacification of the left sphenoid sinus. Remaining sinuses are clear. Nasopharynx: Unremarkable. Oropharynx: Unremarkable. No significant tonsillar enlargement. Hypopharynx: Unremarkable. Larynx: Unremarkable. Normal epiglottis. Retropharyngeal space: Unremarkable. Submandibular/Parotid glands: The superficial right parotid gland is atrophic. The left parotid gland is unremarkable. No parotid mass or duct dilation. Remaining salivary glands are unremarkable. No sialadenitis or salivary gland calculi. Thyroid: Normal. No enlarged or calcified nodules. Lymph nodes: Unremarkable. No lymphadenopathy. Trachea: Visualized trachea is unremarkable. Lungs: Unremarkable as visualized. Bones/joints: Unremarkable. No acute fracture. Soft tissues: Unremarkable. No significant soft tissue swelling. IMPRESSION: 1. Partially atrophic right parotid gland. Left parotid gland is unremarkable. No parotid mass or inflammatory changes. No acute findings. 2. Chronic sphenoid sinusitis. Electronically signed by: Geovanny Lang On 07/04/2021 00:53:22 AM
== END ==
LOC: M PLAIMG 11:07
PROVIDERS: ATTEND Otolaryngology
DX: R22.1 Localized swelling, mass and lump, neck (principal)

== ENCOUNTER 2022-05-26 15:16 | Outpatient (CLI) | payer MEDICARE, OTHER ==
[~2022-05-26] VITALS: Ht 160 cm; Wt 94.0 kg
[~2022-05-26 15:16] MED LIST changes: +ALBUTEROL SULFATE 2.5 MG/0.5 ML INH NEB SOLN INH PRN; +EPINEPHrine INJ 1 MG/ML 1ML AMP IM PRN; -MAGN400T3 PO; +MAGN400T33 PO; +diphenhydrAMINE 50MG/ML VIAL (J1200) IV PRN; +methylPREDNISolone 125MG 2ML VIAL IV PRN
[2022-05-26 15:20] VITALS: BP 190/90
[2022-05-26] MEDS ORDERED: FERRIC CARBOXYMALTOSE INJ 750 MG in NS 250 ML (>50kg) IV ONE ×3 (15:30)
[2022-05-26] MEDS ORDERED: NS 1,000 ML IV SCH (15:30)
[2022-05-26 16:20] VITALS: BP 176/81
[2022-05-26 17:20] VITALS: BP 184/81
== END 2022-05-26 17:20 | disposition home or self-care (01) ==
LOC: M INFU 15:16
PROVIDERS: ATTEND Internal Medicine Nephrology
DX: D50.9 Iron deficiency anemia, unspecified (principal); Z88.0 Allergy status to penicillin; Z88.6 Allergy status to analgesic agent; Z88.2 Allergy status to sulfonamides; Z88.8 Allergy status to other drugs, medicaments and biological substances; Z91.041 Radiographic dye allergy status
CPT/HCPCS: 96365; J1439

== ENCOUNTER 2022-06-02 10:05 | Outpatient (CLI) | payer MEDICARE, OTHER ==
[~2022-06-02] VITALS: Ht 160 cm; Wt 97.3 kg
[2022-06-02 10:05] VITALS: BP 198/75
[2022-06-02] MEDS ORDERED: FERRIC CARBOXYMALTOSE INJ 750 MG in NS 250 ML (>50kg) IV ONE ×3 (10:30)
[2022-06-02] MEDS ORDERED: NS 1,000 ML IV SCH (10:30)
[2022-06-02 11:18] VITALS: BP 163/80
== END 2022-06-02 11:40 | disposition home or self-care (01) ==
LOC: M INFU 10:05
PROVIDERS: ATTEND Internal Medicine Nephrology
DX: D50.9 Iron deficiency anemia, unspecified (principal); Z88.0 Allergy status to penicillin; Z88.2 Allergy status to sulfonamides; Z88.6 Allergy status to analgesic agent; Z88.8 Allergy status to other drugs, medicaments and biological substances; Z91.041 Radiographic dye allergy status; Z88.7 Allergy status to serum and vaccine; Z91.040 Latex allergy status
CPT/HCPCS: 96365; J1439